=== PATIENT | female | born 1970 ===

== ENCOUNTER 2017-10-19 16:45 | Emergency (ER) | payer MEDICAID, OTHER ==
[2017-10-19 16:57] VITALS: TEMP 98.2
[2017-10-19 18:04] LABS: BASO # 0.1 K/uL (0.0-0.2); BASO % 0.7 % (0.0-2.0); EOS # 0.6 K/uL (0.0-0.7); EOS % 8.9 % (0.0-4.0); HEMOGLOBIN 11.9 g/dL (11.0-16.0); LYMPH # 2.5 K/uL (1.0-4.3); LYMPH % 34.5 % (20.0-40.0); MEAN CELL VOLUME 87.3 fL (81.0-99.0); MEAN CORPUSCULAR HEMOGLOBIN 29.7 pg (27.0-31.0); MEAN PLATELET VOLUME 9.1 fL (7.2-11.7); MONO # 0.5 K/uL (0.0-0.8); MONO % 7.1 % (0.0-10.0); NEUT # 3.5 K/uL (1.8-7.0); NEUT % 48.8 % (50.0-75.0); NRBC % 0.1 % (0.0-2.0); RBC 4.01 Mil/uL (3.80-5.20); RED CELL DISTRIBUTION WIDTH 13.1 % (11.5-14.5); WHITE BLOOD COUNT 7.2 K/uL (4.8-10.8)
[2017-10-19 18:07] LABS: HCG,QUALITATIVE URINE NEGATIVE (NEGATIVE)
[2017-10-19 18:08] LABS: SQUAMOUS EPITHIAL < 1 /hpf (0-5); URINE BILIRUBIN NEGATIVE (NEGATIVE); URINE BLOOD NEGATIVE (NEGATIVE); URINE CLARITY Clear (Clear); URINE COLOR Colorless (YELLOW); URINE GLUCOSE (UA) NORMAL (Normal); URINE LEUKOCYTE ESTERASE NEG Leu/uL (Negative); URINE NITRATE NEGATIVE (NEGATIVE); URINE PROTEIN NEGATIVE (NEGATIVE); URINE UROBILINOGEN NORMAL mg/dL (0.2-1.0)
[2017-10-19 18:16] LABS: ALB/GLOB RATIO 1.1 (1.0-2.1); ALBUMIN 4.4 g/dL (3.5-5.0); ALT/SGPT 70 U/L (9-52); AST/SGOT 64 U/L (14-36); BLOOD UREA NITROGEN 14 mg/dL (7-17); CALCIUM 9.4 mg/dl (8.6-10.4); GFR AFRICAN-AMERICAN > 60; GFR NON-AFRICAN AMERICAN 53
--- NOTE | 2017-10-19 19:14 | C.PDOC ---
Time Seen by Provider: 10/19/17 17:06 Chief Complaint (Nursing): Abdominal Pain History Per: Patient Onset/Duration Of Symptoms: Mins (30) Current Symptoms Are (Timing): Gone Severity: Moderate Location Of Pain/Discomfort: Epigastric Quality Of Discomfort: "Pain" Exacerbating Factors: None Alleviating Factors: None Additional History Per: Prior Records Past Medical History Reviewed: Historical Data, Nursing Documentation, Vital Signs Vital Signs: Last Vital Signs Temp 98.2 F 10/19/17 16:54 Pulse 53 L 10/19/17 16:54 Resp 19 10/19/17 16:54 BP 123/67 10/19/17 16:54 Pulse Ox 98 10/19/17 16:54 - Medical History Other PMH: Lupus Surgical History: No Surg Hx Family History: States: Unknown Family Hx - Social History Hx Alcohol Use: No Hx Substance Use: No - Immunization History Hx Tetanus Toxoid Vaccination: No Hx Influenza Vaccination: No Hx Pneumococcal Vaccination: No Review Of Systems Except As Marked, All Systems Reviewed And Found Negative. Constitutional: Negative for: Fever, Weakness Cardiovascular: Negative for: Chest Pain Respiratory: Negative for: Shortness of Breath Gastrointestinal: Positive for: Abdominal Pain. Negative for: Nausea, Vomiting , Diarrhea, Constipation, Melena, Hematochezia, Hematemesis Genitourinary: Negative for: Dysuria Musculoskeletal: Negative for: Neck Pain, Back Pain Skin: Negative for: Rash Neurological: Negative for: Weakness, Numbness Physical Exam - Physical Exam Appears: Non-toxic, No Acute Distress Skin: Normal Color, Warm, Dry, No Rash Head: Atraumatic, Normacephalic Eye(s): bilateral: Normal Inspection, PERRL, EOMI Neck: Normal ROM, Supple Cardiovascular: Rhythm Regular Respiratory: Normal Breath Sounds, No Accessory Muscle Use Gastrointestinal/Abdominal: Soft, No Tenderness, No Distention Back: No CVA Tenderness Extremity: Normal ROM Neurological/Psych: Oriented x3, Normal Motor, Normal Sensation ED Course And Treatment - Laboratory Results Result Diagrams: 10/19/17 18:01 10/19/17 18:01 Urine POC: Negative O2 Sat by Pulse Oximetry: 98 Pulse Ox Interpretation: Normal Progress Note: Pt is now asymptomatic. Tolerating PO in the ED. Reassessment Condition: Improved Disposition Counseled Patient/Family Regarding: Studies Performed, Diagnosis, Need For Followup, Rx Given - Disposition Referrals: Hannah Garcia MD [Staff Provider] - Disposition: HOME/ ROUTINE Disposition Time: 19:14 Condition: IMPROVED Additional Instructions: Follow up with your doctor. Return to the ER if you develop fever, vomiting, worsening of symptoms or if you have any other concerns. Prescriptions: Famotidine [Pepcid] 20 mg PO BID #30 tab Instructions: Gastritis Forms: [facility] ([place]), Gen Discharge Inst [place] - Clinical Impression Clinical Impression: Resolved abdominal pain
[2017-10-19 19:30] VITALS: BP 92/59; PULSE 56; RESP 18; O2SAT 99
== END 2017-10-19 19:30 | disposition home or self-care (01) ==
LOC: C.ER 16:45
DX: R10.9 Unspecified abdominal pain (principal); M32.9 Systemic lupus erythematosus, unspecified

== ENCOUNTER 2018-02-02 06:29 | Inpatient (IN) | payer MEDICAID ==
[2018-02-02 07:37] LABS: HCG,QUALITATIVE URINE NEGATIVE (NEGATIVE)
[2018-02-02 07:41] LABS: SQUAMOUS EPITHIAL 14 /hpf (0-5); URINE BACTERIA RARE (<OCC); URINE BILIRUBIN NEGATIVE (NEGATIVE); URINE BLOOD 1+ (NEGATIVE); URINE CLARITY Hazy (Clear); URINE COLOR Amber (YELLOW); URINE GLUCOSE (UA) NORMAL (Normal); URINE LEUKOCYTE ESTERASE TRACE Leu/uL (Negative); URINE PROTEIN NEGATIVE (NEGATIVE)
--- NOTE | 2018-02-02 07:54 | C.PDOC ---
History Of Present Illness 47 years old female presents to ED for complaints of epigastric abdominal pain associated with nausea and vomiting that began yesterday. Patient reports experiencing similar symptoms 2 months ago. Patient states symptoms currently are more intense and prolonged than usual. Patient also reports pain is localized and waxing and waning. Denies fever, or past surgical history. Patient also states she has not taken any medications for relief. RECUR EPIG PAIN SINCE YEST. SIM SX 2 MO AGO, CURRENT EPISODE MORE INTENSE AND PROLONGED THAN USUAL. LOCALIZED [place] +[place] NO FEVER. PSH NEG. NO MEDS TRIED. EXAM MILD DIST NONTOXIC HEENT ANICTERIC MMM ABD +EPIG/RUQ TEND SOFT NO R/G REMAINDER NEG Time Seen by Provider: 02/02/18 07:27 Chief Complaint (Nursing): Abdominal Pain History Per: Patient History/Exam Limitations: no limitations Onset/Duration Of Symptoms: Days (1), Waxing/Waning Current Symptoms Are (Timing): Still Present Location Of Pain/Discomfort: Epigastric Radiation Of Pain To:: None Quality Of Discomfort: "Pain" Associated Symptoms: Nausea, Vomiting. denies: Fever, Chills, Diarrhea, Urinary Symptoms Exacerbating Factors: None Alleviating Factors: None Last Bowel Movement: Today Recent travel outside of the [place]: No Abnormal Vaginal Bleeding: No Past Medical History Reviewed: Historical Data, Nursing Documentation, Vital Signs Vital Signs: Last Vital Signs Temp 98.1 F 02/02/18 06:33 Pulse 60 02/02/18 08:19 Resp 18 02/02/18 08:19 BP 105/67 02/02/18 08:19 Pulse Ox 100 02/02/18 12:22 - Medical History PMH: HTN Family History: States: Unknown Family Hx - Social History Hx Alcohol Use: No Hx Substance Use: No - Immunization History Hx Tetanus Toxoid Vaccination: No Hx Influenza Vaccination: No Hx Pneumococcal Vaccination: No Review Of Systems Constitutional: Negative for: Fever, Chills Gastrointestinal: Positive for: Nausea, Vomiting, Abdominal Pain (Epigastric). Negative for: Diarrhea Skin: Negative for: Rash Neurological: Negative for: Weakness, Numbness Physical Exam - Physical Exam Appears: Non-toxic, In Acute Distress (Mild) Skin: Warm, Dry, No Rash Head: Atraumatic, Normacephalic Eye(s): bilateral: Normal Inspection, PERRL, EOMI, Other (ANICTERIC) Ear(s): Bilateral: Normal Nose: Normal, No Discharge Oral Mucosa: Moist Throat: Normal, No Erythema, No Exudate Neck: Supple Chest: Symmetrical, No Tenderness Cardiovascular: Rhythm Regular, No Murmur Respiratory: Normal Breath Sounds, No Decreased Breath Sounds, No Rales, No Rhonchi, No Wheezing Gastrointestinal/Abdominal: Soft, Tenderness (Epigastric and RUQ), No Guarding, No Rebound Extremity: Normal ROM Extremity: Bilateral: Atraumatic, Normal Color And Temperature, Normal ROM Pulses: Left Radial: Normal, Right Radial: Normal Neurological/Psych: Oriented x3 (Awake and Alery), Normal Speech, Other (No focal deficits) Gait: Steady ED Course And Treatment - Laboratory Results Result Diagrams: 02/02/18 08:09 02/02/18 08:09 ECG: Interpreted By Me ECG Rhythm: Sinus Bradycardia ECG Interpretation: No Changes From Prior Interpretation Of ECG: TWI V5-6 Rate From EC O2 Sat by Pulse Oximetry: 100 (RA) Pulse Ox Interpretation: Normal - Other Rad CXR X-Ray: Viewed By Me, Read By Radiologist Interpretation: HISTORY: . Abdominal pain. COMPARISON: No prior. TECHNIQUE: Chest PA and lateral. FINDINGS: LUNGS: Minor bibasilar atelectasis. PLEURA : No significant pleural effusion identified. No pneumothorax apparent. CARDIOVASCULAR: Heart is enlarged. OSSEOUS STRUCTURES: Mild diffuse demineralization. Apparent minor chronic anterior stature loss of at least to the upper thoracic segments. VISUALIZED UPPER ABDOMEN: Normal. OTHER FINDINGS : None. IMPRESSION: Minor bibasilar atelectasis - CT Scan/US Abdomen US Other Rad Studies (CT/US): Read By Radiologist, Radiology Report Reviewed CT/US Interpretation: HISTORY: abd pain. COMPARISON: None. TECHNIQUE: Sonographic evaluation of the right upper quadrant of the abdomen. FINDINGS: LIVER: Enlarged, measured 22.0 cm in length. Normal echogenicity of the liver parenchyma. No mass. No intrahepatic bile duct dilatation. GALLBLADDER: Cholelithiasis and sludge without gallbladder wall thickening/edema or pericholecystic fluid. Sonographic Piña's sign was not elicited. COMMON BILE DUCT: Measures 5 mm. No stones. No dilatation. PANCREAS: Unremarkable as visualized. No mass. No ductal dilatation. RIGHT KIDNEY: Measures 11.2 x 4.9 x 6.1 cm in length. Normal echogenicity. No calculus, mass, or hydronephrosis. AORTA: No aneurysmal dilatation. IVC: Unremarkable. OTHER FINDINGS: None . IMPRESSION: Hepatomegaly. Cholelithiasis without sonographic evidence of acute cholecystitis. Abdomen/Pelvis CT Other Rad Studies (CT/US): Read By Radiologist, Radiology Report Reviewed CT/US Interpretation: PROCEDURE: CT Abdomen and Pelvis with contrast. HISTORY : abd pain abn lft. COMPARISON: None. TECHNIQUE: Contrast dose: 100 mL Visipaque 320. Radiation dose: Total exam DLP = 1168.4 mGy-cm. This CT exam was performed using one or more of the following dose reduction techniques: Automated exposure control, adjustment of the mA and/or kV according to patient size, and/or use of iterative reconstruction technique. FINDINGS: LOWER THORAX : Bibasilar atelectasis. No focal consolidation or pleural effusion. Cardiomegaly. LIVER: Mild hepatic steatosis. No gross lesion or ductal dilatation. GALLBLADDER AND BILE DUCTS: Cholelithiasis. No gallbladder wall thickening/edema or pericholecystic fluid. PANCREAS: Unremarkable. No gross lesion or ductal dilatation. SPLEEN: Unremarkable. ADRENALS: Unremarkable. No mass. KIDNEYS AND URETERS: Unremarkable. No hydronephrosis. No solid mass. VASCULATURE: Unremarkable. No aortic aneurysm. BOWEL: Unremarkable. No obstruction. No gross mural thickening. APPENDIX: Normal appendix. PERITONEUM : Unremarkable. No free fluid. No free air. LYMPH NODES: Unremarkable. No enlarged lymph nodes. BLADDER: Unremarkable. REPRODUCTIVE: Unremarkable. BONES: No acute fracture. OTHER FINDINGS: None. IMPRESSION: Mild hepatic steatosis. Cholelithiasis without sonographic evidence of acute cholecystitis. Progress - Re-Evaluation Re-evaluation Note: 02/02/18 12:[address] REPORT REVIEWED D/W DR KINSEY: AWARE OF ER FINDINGS, STATES UNABLE TO ADMIT PT DUE TO BEING OUT OF TOWN. REQUESTS ADMISSION TO [facility]. 02/02/18 12:37 D/W DR MILLER [facility] AWARE OF ER FINDINGS WILL ADMIT - Data Reviewed Data Reviewed: Lab, Diagnostic imaging, EKG, Old records Medical Decision Making Medical Decision Making: Administered Protonix, Morphine, Compazine, and IV fluids. Ordered EKG, blood work, CXR, urinalysis and Abdomen US. Disposition Counseled Patient/Family Regarding: Studies Performed, Diagnosis - Disposition Disposition: HOSPITALIZED Disposition Time: 12:21 Condition: STABLE Forms: [facility] ([place]) - Clinical Impression Clinical Impression: Biliary colic, Abnormal LFTs - Scribe Statement The provider has reviewed the documentation as recorded by the Evin Menendez All medical record entries made by the Scribe were at my direction and personally dictated by me. I have reviewed the chart and agree that the record accurately reflects my personal performance of the history, physical exam, medical decision making, and the department course for this patient. I have also personally directed, reviewed, and agree with the discharge instructions and disposition. Decision To Admit - Pt Status Changed To: Hospital Disposition Of: Inpatient - Admit Certification Admit to Inpatient:: After my assessment, the patient will require hospitalization for at least two midnights. This is because of the severity of symptoms shown, intensity of services needed, and/or the medical risk in this patient being treated as an outpatient. - InPatient: Physician Admission Certification:: SEE NOTE - . Bed Request Type: Regular Admitting Physician: Patel Miller Patient Diagnosis: Biliary colic, Abnormal LFTs
[2018-02-02] MEDS ORDERED: Sodium Chloride 0.9% 1,000 ML IV ONE (07:55)
[2018-02-02] MEDS ORDERED: Sodium Chloride 0.9% 1,000 ML ONE (08:11)
[2018-02-02 08:21] LABS: BASO % 0.4 % (0.0-2.0); EOS # 0.2 K/uL (0.0-0.7); EOS % 2.1 % (0.0-4.0); LYMPH # 1.8 K/uL (1.0-4.3); MEAN CELL VOLUME 86.9 fL (81.0-99.0); MEAN CORPUSCULAR HEMOGLOBIN 29.2 pg (27.0-31.0); MEAN CORPUSCULAR HGB CONC 33.6 g/dL (33.0-37.0); MEAN PLATELET VOLUME 9.1 fL (7.2-11.7); MONO # 0.6 K/uL (0.0-0.8); NEUT # 4.8 K/uL (1.8-7.0); NEUT % 65.5 % (50.0-75.0); NRBC % 0.1 % (0.0-2.0); RBC 4.12 Mil/uL (3.80-5.20); RED CELL DISTRIBUTION WIDTH 13.5 % (11.5-14.5); WHITE BLOOD COUNT 7.4 K/uL (4.8-10.8)
[2018-02-02 08:36] LABS: ALB/GLOB RATIO 1.3 (1.0-2.1); ALBUMIN 4.6 g/dL (3.5-5.0); ALT/SGPT 367 U/L (9-52); AST/SGOT 497 U/L (14-36); BLOOD UREA NITROGEN 12 mg/dL (7-17); CALCIUM 9.4 mg/dl (8.6-10.4); GFR AFRICAN-AMERICAN > 60; GFR NON-AFRICAN AMERICAN > 60; LIPASE 139 U/L (23-300)
--- NOTE | 2018-02-02 09:47 | US ---
HISTORY: abd pain COMPARISON: None. TECHNIQUE: Sonographic evaluation of the right upper quadrant of the abdomen. FINDINGS: LIVER: Enlarged, measured 22.0 cm in length. Normal echogenicity of the liver parenchyma. No mass. No intrahepatic bile duct dilatation. GALLBLADDER: Cholelithiasis and sludge without gallbladder wall thickening/edema or pericholecystic fluid. Sonographic Piña's sign was not elicited COMMON BILE DUCT: Measures 5 mm. No stones. No dilatation. PANCREAS: Unremarkable as visualized. No mass. No ductal dilatation. RIGHT KIDNEY: Measures 11.2 x 4.9 x 6.1 cm in length. Normal echogenicity. No calculus, mass, or hydronephrosis. AORTA: No aneurysmal dilatation. IVC: Unremarkable. OTHER FINDINGS: None . IMPRESSION: Hepatomegaly. Cholelithiasis without sonographic evidence of acute cholecystitis.
[2018-02-02] MEDS ORDERED: Iodixanol 320 MG/ML 100 ML BOTTLE IV ONE ×2 (11:22→11:29)
--- NOTE | 2018-02-02 12:01 | RAD ---
HISTORY: . Abdominal pain COMPARISON: No prior. TECHNIQUE: Chest PA and lateral FINDINGS: LUNGS: Minor bibasilar atelectasis. PLEURA: No significant pleural effusion identified. No pneumothorax apparent. CARDIOVASCULAR: Heart is enlarged. OSSEOUS STRUCTURES: Mild diffuse demineralization. Apparent minor chronic anterior stature loss of at least to the upper thoracic segments VISUALIZED UPPER ABDOMEN: Normal. OTHER FINDINGS: None. IMPRESSION: Minor bibasilar atelectasis
--- NOTE | 2018-02-02 12:02 | CT ---
PROCEDURE: CT Abdomen and Pelvis with contrast HISTORY: abd pain abn lft COMPARISON: None. TECHNIQUE: Contrast dose: 100 mL Visipaque 320 Radiation dose: Total exam DLP = 1168.4 mGy-cm. This CT exam was performed using one or more of the following dose reduction techniques: Automated exposure control, adjustment of the mA and/or kV according to patient size, and/or use of iterative reconstruction technique. FINDINGS: LOWER THORAX: Bibasilar atelectasis. No focal consolidation or pleural effusion. Cardiomegaly. LIVER: Mild hepatic steatosis. No gross lesion or ductal dilatation. GALLBLADDER AND BILE DUCTS: Cholelithiasis. No gallbladder wall thickening/edema or pericholecystic fluid. PANCREAS: Unremarkable. No gross lesion or ductal dilatation. SPLEEN: Unremarkable. ADRENALS: Unremarkable. No mass. KIDNEYS AND URETERS: Unremarkable. No hydronephrosis. No solid mass. VASCULATURE: Unremarkable. No aortic aneurysm. BOWEL: Unremarkable. No obstruction. No gross mural thickening. APPENDIX: Normal appendix. PERITONEUM: Unremarkable. No free fluid. No free air. LYMPH NODES: Unremarkable. No enlarged lymph nodes. BLADDER: Unremarkable. REPRODUCTIVE: Unremarkable. BONES: No acute fracture. OTHER FINDINGS: None. IMPRESSION: Mild hepatic steatosis. Cholelithiasis without sonographic evidence of acute cholecystitis.
--- NOTE | 2018-02-02 13:18 | CARD ---
APPROVED REPORT EKG Measurement Heart [id number] <Conclusion> Sinus bradycardia Low voltage QRS Nonspecific T wave abnormality Abnormal ECG
--- NOTE | 2018-02-02 13:30 | CP.PCM.HP ---
<Cristian Aguirre - Last Filed: 02/02/18 14:02> History of Present Illness - History of Present Illness History of Present Illness: H&P for hospitalist service Pt is 47 year old female with hx of SLE and hypertension. She is presenting today with 1 day hx of upper abdominal pain. She states that she has experienced this pain in the past and it has subsided on its own historically. Her most recent bout of pain started yesterday and has been waxing and waning since onset. She denies vomiting, fever, chest pain, shortness of breath, diarrhea, constipation, irregular bowel/bladded habits, hematochezia, dysuria. She is unable to make any distinct association between food and the abdominal pain, as it occurs both on an empty stomach as well as after meals. Her pain has subsided since she first arrived and states that she is okay right now. During examination the patient appears comfortable and is laying in bed. PMD: Dr. Garcia PMHx: SLE, HTN PSHx: denied Meds: Coreg 25mg PO BID Lasix 40mg PO Daily Lisinopril 10mg PO daily Hydroxychloroquin 200mg PO BID Spironolactone 25mg PO daily Allergies: NKDA Family Hx: Father with HTN Social Hx: Non-smoker, occasional ETOh, No illicit drugs Present on Admission - Present on Admission Any Indicators Present on Admission: No Review of Systems - Constitutional Constitutional: absent: Anorexia, Chills, Fatigue, Fever, Headache, Lethargy - EENT Eyes: absent: Blurred Vision, Change in Vision Nose/Mouth/Throat: absent: Sore Throat, Neck Pain - Cardiovascular Cardiovascular: absent: Chest Pain, Chest Pain at Rest, Diaphoresis, Dyspnea, Syncope - Respiratory Respiratory: absent: Dyspnea - Gastrointestinal Gastrointestinal: Abdominal Pain. absent: Constipation, Diarrhea, Hematemesis, Melena, Nausea, Vomiting - Genitourinary Genitourinary: absent: Dysuria, Flank Pain, Hematuria - Musculoskeletal Musculoskeletal: absent: Arthralgias, Back Pain - Neurological Neurological: absent: Abnormal Gait, Syncope, Tingling, Weakness Past Patient History - Infectious Disease Hx of Infectious Diseases: None - Past Social History Smoking Status: Never Smoked - CARDIAC Hx Hypertension: Yes - ENDOCRINE/METABOLIC Hx Systemic Lupus Erythematosus: Yes - PSYCHIATRIC Hx Substance Use: No - SURGICAL HISTORY Hx Surgeries: No - ANESTHESIA Hx Anesthesia: No Meds Allergies/Adverse Reactions: Allergies Allergy/AdvReac Type Severity Reaction Status Date / Time No Known Allergies Allergy Verified 02/02/18 06:38 Physical Exam - Constitutional Appears: No Acute Distress - Head Exam Head Exam: ATRAUMATIC, NORMOCEPHALIC - Eye Exam Eye Exam: EOMI, Normal appearance - ENT Exam ENT Exam: Mucous Membranes Moist - Respiratory Exam Respiratory Exam: Clear to Auscultation Bilateral, NORMAL BREATHING PATTERN - Cardiovascular Exam Cardiovascular Exam: REGULAR RHYTHM, +S1, +S2 - GI/Abdominal Exam GI & Abdominal Exam: Normal Bowel Sounds, Soft. absent: Distended, Guarding, Mass, Tenderness Additional comments: negative Piña - Rectal Exam Rectal Exam: absent: Black Stool, Bloody Stool - Neurological Exam Neurological exam: Alert, Oriented x3 - Psychiatric Exam Psychiatric exam: Normal Affect, Normal Mood - Skin Skin Exam: Dry, Warm Results - Vital Signs Recent Vital Signs: Last Vital Signs Temp 98.2 F 02/02/18 12:55 Pulse 57 L 02/02/18 12:55 Resp 16 02/02/18 12:55 BP 110/74 02/02/18 12:55 Pulse Ox 100 02/02/18 12:55 - Labs Result Diagrams: 02/02/18 08:09 02/02/18 08:09 Labs: Laboratory Results - last 24 hr 02/02/18 02/02/18 02/02/18 07:28 08:09 08:09 WBC 7.4 RBC 4.12 Hgb 12.0 Hct 35.8 MCV 86.9 MCH 29.2 MCHC 33.6 RDW 13.5 Plt Count 205 MPV 9.1 Neut % (Auto) 65.5 Lymph % (Auto) 24.0 [place] % (Auto) 8.0 Eos % (Auto) 2.1 Baso % (Auto) 0.4 Neut # (Auto) 4.8 Lymph # (Auto) 1.8 [place] # (Auto) 0.6 Eos # (Auto) 0.2 Baso # (Auto) 0.0 Sodium 141 Potassium 4.0 Chloride 102 Carbon Dioxide 27 Anion Gap 15 BUN 12 Creatinine 0.7 Est GFR ( Amer) > 60 Est GFR (Non-Af Amer) > 60 Random Glucose 112 H Calcium 9.4 Total Bilirubin 1.6 H AST 497 H D ALT 367 H D Alkaline Phosphatase 147 H D Troponin I < 0.0120 Total Protein 8.1 Albumin 4.6 Globulin 3.5 Albumin/Globulin Ratio 1.3 Lipase 139 Urine Color [place] Urine Clarity Hazy Urine pH 7.0 Ur Specific [place] 1.018 Urine Protein Negative Urine Glucose (UA) Normal Urine Ketones Negative Urine Blood 1+ H Urine Nitrate Negative Urine Bilirubin Negative Urine Urobilinogen 2.0 H Ur Leukocyte Esterase Trace H Urine WBC (Auto) 5 Urine RBC (Auto) 4 H Ur Squamous Epith Cells 14 H Ur Transition Epith Cell 1 Urine Bacteria Rare Urine HCG, Qual Negative Assessment & Plan - Assessment and Plan (Free Text) Assessment: 47 year old female with hx of HTN and SLE presenting for 1 day hx of upper abdominal pain Plan: 1. Abdominal pain Abdominal Ultrasound done in ED shows cholelithiasis w/o evidence for cholecystitis CT abdomen/pelvis done in ED shows cholelithiasis w/o evidence for cholecystitis GI consult placed to Dr. Deon Ahmadi appreciated Protonix 40mg IV BID NPO except meds F/U MRCP- ordered 02/02/18 Labs: AST: 497 ALT: 367 Alk Phos: 147 T Bili: 1.6 Lipase: 139 WBC: 7.4 Afebrile Toradol 30mg IV q6hrs prn mod pain Dilaudid 0.5 mg q7hrs prn severe pain zofran 4mg iv q4hrs prn nausea 2. Hypertension Currently normotensive Continue home meds: Coreg 25mg PO BID Lasix 40mg PO Daily Lisinopril 10mg PO daily Spironolactone 25mg PO daily 3. SLE Continue home meds: Hydroxychloroquin 200mg PO BID 4. Prophylaxis Protonix 40mg IV BID SCD Case discussed with Dr. Painter <Patel Painter H - Last Filed: 02/02/18 16:37> Results - Vital Signs Recent Vital Signs: Last Vital Signs Temp 98.1 F 02/02/18 16:21 Pulse 55 L 02/02/18 16:21 Resp 20 02/02/18 16:21 BP 112/71 02/02/18 16:21 Pulse Ox 97 02/02/18 16:21 - Labs Result Diagrams: 02/02/18 08:09 02/02/18 08:09 Labs: Laboratory Results - last 24 hr 0602/02/18 02/02/18 07:28 08:09 08:09 WBC 7.4 RBC 4.12 Hgb 12.0 Hct 35.8 MCV 86.9 MCH 29.2 MCHC 33.6 RDW 13.5 Plt Count 205 MPV 9.1 Neut % (Auto) 65.5 Lymph % (Auto) 24.0 [place] % (Auto) 8.0 Eos % (Auto) 2.1 Baso % (Auto) 0.4 Neut # (Auto) 4.8 Lymph # (Auto) 1.8 [place] # (Auto) 0.6 Eos # (Auto) 0.2 Baso # (Auto) 0.0 Sodium 141 Potassium 4.0 Chloride 102 Carbon Dioxide 27 Anion Gap 15 BUN 12 Creatinine 0.7 Est GFR ( Amer) > 60 Est GFR (Non-Af Amer) > 60 Random Glucose 112 H Calcium 9.4 Total Bilirubin 1.6 H AST 497 H D ALT 367 H D Alkaline Phosphatase 147 H D Troponin I < 0.0120 Total Protein 8.1 Albumin 4.6 Globulin 3.5 Albumin/Globulin Ratio 1.3 Lipase 139 Urine Color [place] Urine Clarity Hazy Urine pH 7.0 Ur Specific [place] 1.018 Urine Protein Negative Urine Glucose (UA) Normal Urine Ketones Negative Urine Blood 1+ H Urine Nitrate Negative Urine Bilirubin Negative Urine Urobilinogen 2.0 H Ur Leukocyte Esterase Trace H Urine WBC (Auto) 5 Urine RBC (Auto) 4 H Ur Squamous Epith Cells 14 H Ur Transition Epith Cell 1 Urine Bacteria Rare Urine HCG, Qual Negative Attending/Attestation - Attestation I have personally seen and examined this patient.: Yes I have fully participated in the care of the patient.: Yes I have reviewed all pertinent clinical information: Yes Notes (Text): 02/02/18 16:34 Medical attending: Patient was not in any acute distress when I saw her. She reported that most of the pain had already subsided. She already had U/S as well as CT scan of the abdomen and pelvis which revealed she does have gallstones but that no stones were immediately visualized. There was no sonographic piña sign and she did not report fever. The WBC was also stable as well. Will get MRCP for the time being. NPO except medications, IVF and also will get GI evaluation Patel Painter
[2018-02-02] MEDS ORDERED: HYDROmorphone 0.5 mg/0.5 ml ISec IVP PRN (13:54)
[2018-02-02] MEDS: Sodium Chloride 0.9% 1,000 ML IV SCH (14:52)
--- NOTE | 2018-02-02 15:53 | CP.PCM.CON ---
<Alison Guaman - Last Filed: 02/02/18 16:36> History of Present Illness - History of Present Illness History of Present Illness: GI Fellow PGY4 Consult Note This is 47 year old female with hx of SLE on hydroxychloroquine and hypertension presenting to ER with 2 day hx of abdominal pain. She states that she had a similar pain 3months ago but it resolved on its own. This pain started two nights ago, located epigastric area and radiating across upper abdomen. Pt denies associated fevers, chills, nausea or vomiting, pain is waxing and waning since onset. She is unable to make association between food and the abdominal pain. At the time of evaluation her pain has subsided since she first arrived. GI was consulted for elevated LFTs and cholelithiasis on imaging. No prior EGD/Colonoscopy. ROS: A 12pt ROS was negative except as above PMHx: As stated in HPI PSHx: None FHx: Neg for colon cancer or gallstones SHx: Non-smoker, occasional ETOh, No illicit drugs Past Patient History - Infectious Disease Hx of Infectious Diseases: None - Past Social History Smoking Status: Never Smoked - CARDIAC Hx Hypertension: Yes - ENDOCRINE/METABOLIC Hx Systemic Lupus Erythematosus: Yes - PSYCHIATRIC Hx Substance Use: No - SURGICAL HISTORY Hx Surgeries: No - ANESTHESIA Hx Anesthesia: No Meds Allergies/Adverse Reactions: Allergies Allergy/AdvReac Type Severity Reaction Status Date / Time No Known Allergies Allergy Verified 02/02/18 06:38 - Medications Medications: Current Medications Acetaminophen (Tylenol 325mg Tab) 650 mg PO Q6 PRN PRN Reason: Fever >100.4 F Carvedilol (Coreg) 25 mg PO BID [facility] Furosemide (Lasix) 40 mg PO DAILY [facility] Hydromorphone HCl (Dilaudid) 0.5 mg IVP Q6H PRN PRN Reason: Pain, severe (8-10) Hydroxychloroquine Sulfate (Plaquenil) 200 mg PO BID [facility] PRN Reason: Protocol Sodium Chloride (Sodium Chloride 0.9%) 1,000 mls @ 100 mls/hr IV .Q10H [facility] Last Admin: 02/02/18 14:52 Dose: 100 mls/hr Ketorolac Tromethamine (Toradol) 30 mg IV Q6 PRN PRN Reason: Pain, moderate (4-7) Lisinopril (Zestril) 10 mg PO DAILY [facility] Ondansetron HCl (Zofran Inj) 4 mg IVP Q6 PRN PRN Reason: Nausea/Vomiting Spironolactone (Aldactone) 25 mg PO DAILY [facility] Physical Exam - Constitutional Appears: Non-toxic, No Acute Distress - Head Exam Head Exam: ATRAUMATIC, NORMAL INSPECTION, NORMOCEPHALIC - Eye Exam Eye Exam: EOMI, Normal appearance, PERRL Pupil Exam: PERRL - ENT Exam ENT Exam: Mucous Membranes Moist, Normal Exam - Neck Exam Neck exam: Positive for: Full Rom, Normal Inspection - Respiratory Exam Respiratory Exam: Clear to Auscultation Bilateral, NORMAL BREATHING PATTERN - Cardiovascular Exam Cardiovascular Exam: REGULAR RHYTHM, RRR, +S1, +S2 - GI/Abdominal Exam GI & Abdominal Exam: Normal Bowel Sounds, Soft. absent: Distended, Organomegaly , Tenderness - Rectal Exam Rectal Exam: Deferred - Extremities Exam Extremities exam: Positive for: full ROM, normal inspection - Back Exam Back exam: NORMAL INSPECTION - Neurological Exam Neurological exam: Alert, Oriented x3 - Psychiatric Exam Psychiatric exam: Normal Affect, Normal Mood - Skin Skin Exam: Dry, Intact, Normal Color, Warm Results - Vital Signs Recent Vital Signs: Last Vital Signs Temp 98.2 F 02/02/18 12:55 Pulse 61 02/02/18 14:51 Resp 18 02/02/18 14:51 BP 131/77 02/02/18 14:51 Pulse Ox 97 02/02/18 14:51 - Labs Result Diagrams: 02/02/18 08:09 02/02/18 08:09 Labs: Laboratory Results - last 24 hr 02/02/18 02/02/18 02/02/18 07:28 08:09 08:09 WBC 7.4 RBC 4.12 Hgb 12.0 Hct 35.8 MCV 86.9 MCH 29.2 MCHC 33.6 RDW 13.5 Plt Count 205 MPV 9.1 Neut % (Auto) 65.5 Lymph % (Auto) 24.0 [place] % (Auto) 8.0 Eos % (Auto) 2.1 Baso % (Auto) 0.4 Neut # (Auto) 4.8 Lymph # (Auto) 1.8 [place] # (Auto) 0.6 Eos # (Auto) 0.2 Baso # (Auto) 0.0 Sodium 141 Potassium 4.0 Chloride 102 Carbon Dioxide 27 Anion Gap 15 BUN 12 Creatinine 0.7 Est GFR ( Amer) > 60 Est GFR (Non-Af Amer) > 60 Random Glucose 112 H Calcium 9.4 Total Bilirubin 1.6 H AST 497 H D ALT 367 H D Alkaline Phosphatase 147 H D Troponin I < 0.0120 Total Protein 8.1 Albumin 4.6 Globulin 3.5 Albumin/Globulin Ratio 1.3 Lipase 139 Urine Color [place] Urine Clarity Hazy Urine pH 7.0 Ur Specific [place] 1.018 Urine Protein Negative Urine Glucose (UA) Normal Urine Ketones Negative Urine Blood 1+ H Urine Nitrate Negative Urine Bilirubin Negative Urine Urobilinogen 2.0 H Ur Leukocyte Esterase Trace H Urine WBC (Auto) 5 Urine RBC (Auto) 4 H Ur Squamous Epith Cells 14 H Ur Transition Epith Cell 1 Urine Bacteria Rare Urine HCG, Qual Negative Assessment & Plan - Assessment and Plan (Free Text) Assessment: This is a 47yF with pmhx of HTN, SLE presenting with complaints of two days of upper abdominal pain. 1. Cholelithiasis with sludge 2. Elevated LFTs Plan: -Continue supportive care pain control and antiemetics -IVF hydration -Clear liquid diet -NPO after midnight -Elevated LFTs from 09/2017, maybe from cholelithiasis and sludge as seen on imaging -Will order hepatitis panel, autoimmune serologies for completion -Primary team ordered MRCP, Abd US with no CBD dilation or stone, no signs of cholangitis -Recommend Surgical consult -No indication for abx at this time -Will make further recommendations after MRCP results <Kishan Ellis Y - Last Filed: 02/02/18 17:59> Meds - Medications Medications: Current Medications Acetaminophen (Tylenol 325mg Tab) 650 mg PO Q6 PRN PRN Reason: Fever >100.4 F Carvedilol (Coreg) 25 mg PO BID [facility] Furosemide (Lasix) 40 mg PO DAILY [facility] Hydromorphone HCl (Dilaudid) 0.5 mg IVP Q6H PRN PRN Reason: Pain, severe (8-10) Hydroxychloroquine Sulfate (Plaquenil) 200 mg PO BID [facility] PRN Reason: Protocol Sodium Chloride (Sodium Chloride 0.9%) 1,000 mls @ 100 mls/hr IV .Q10H [facility] Last Admin: 02/02/18 14:52 Dose: 100 mls/hr Ketorolac Tromethamine (Toradol) 30 mg IV Q6 PRN PRN Reason: Pain, moderate (4-7) Lisinopril (Zestril) 10 mg PO DAILY [facility] Ondansetron HCl (Zofran Inj) 4 mg IVP Q6 PRN PRN Reason: Nausea/Vomiting Spironolactone (Aldactone) 25 mg PO DAILY [facility] Results - Vital Signs Recent Vital Signs: Last Vital Signs Temp 98.1 F 02/02/18 16:21 Pulse 55 L 02/02/18 16:21 Resp 20 02/02/18 16:21 BP 112/71 02/02/18 16:21 Pulse Ox 97 02/02/18 16:21 - Labs Result Diagrams: 02/02/18 08:09 02/02/18 08:09 Labs: Laboratory Results - last 24 hr 02/02/18 02/02/18 02/02/18 07:28 08:09 08:09 WBC 7.4 RBC 4.12 Hgb 12.0 Hct 35.8 MCV 86.9 MCH 29.2 MCHC 33.6 RDW 13.5 Plt Count 205 MPV 9.1 Neut % (Auto) 65.5 Lymph % (Auto) 24.0 [place] % (Auto) 8.0 Eos % (Auto) 2.1 Baso % (Auto) 0.4 Neut # (Auto) 4.8 Lymph # (Auto) 1.8 [place] # (Auto) 0.6 Eos # (Auto) 0.2 Baso # (Auto) 0.0 Sodium 141 Potassium 4.0 Chloride 102 Carbon Dioxide 27 Anion Gap 15 BUN 12 Creatinine 0.7 Est GFR ( Amer) > 60 Est GFR (Non-Af Amer) > 60 Random Glucose 112 H Calcium 9.4 Iron TIBC % Saturation Total Bilirubin 1.6 H AST 497 H D ALT 367 H D Alkaline Phosphatase 147 H D Troponin I < 0.0120 Total Protein 8.1 Albumin 4.6 Globulin 3.5 Albumin/Globulin Ratio 1.3 Lipase 139 Urine Color [place] Urine Clarity Hazy Urine pH 7.0 Ur Specific [place] 1.018 Urine Protein Negative Urine Glucose (UA) Normal Urine Ketones Negative Urine Blood 1+ H Urine Nitrate Negative Urine Bilirubin Negative Urine Urobilinogen 2.0 H Ur Leukocyte Esterase Trace H Urine WBC (Auto) 5 Urine RBC (Auto) 4 H Ur Squamous Epith Cells 14 H Ur Transition Epith Cell 1 Urine Bacteria Rare Urine HCG, Qual Negative IgG Hepatitis A IgM Ab Hep Bs Antigen Hep B Core IgM Ab 02/02/18 02/02/18 02/02/18 16:43 16:43 16:43 WBC RBC Hgb Hct MCV MCH MCHC RDW Plt Count MPV Neut % (Auto) Lymph % (Auto) [place] % (Auto) Eos % (Auto) Baso % (Auto) Neut # (Auto) Lymph # (Auto) [place] # (Auto) Eos # (Auto) Baso # (Auto) Sodium Potassium Chloride Carbon Dioxide Anion Gap BUN Creatinine Est GFR ( Amer) Est GFR (Non-Af Amer) Random Glucose Calcium Iron 85 TIBC 315 % Saturation 27 Total Bilirubin AST ALT Alkaline Phosphatase Troponin I Total Protein Albumin Globulin Albumin/Globulin Ratio Lipase Urine Color Urine Clarity Urine pH Ur Specific [place] Urine Protein Urine Glucose (UA) Urine Ketones Urine Blood Urine Nitrate Urine Bilirubin Urine Urobilinogen Ur Leukocyte Esterase Urine WBC (Auto) Urine RBC (Auto) Ur Squamous Epith Cells Ur Transition Epith Cell Urine Bacteria Urine HCG, Qual IgG 1539.1 Hepatitis A IgM Ab Negative Hep Bs Antigen Negative Hep B Core IgM Ab Negative Attending/Attestation - Attestation I have personally seen and examined this patient.: Yes I have fully participated in the care of the patient.: Yes I have reviewed all pertinent clinical information: Yes Notes (Text): 02/02/18 17:54 I have seen and examined patient with GI fellow. Agree with above documentation with the following additions. In brief, this is a 47 year old female with history of obesity (BMI 35), SLE, HTN who presents to hospital with complaint of abdominal pain for the past 2 days. She describes a sharp epigastric pain, 10/10 intensity which radiates to both R/L upper quadrants. There was no specific relation to food consumption and she denies nausea, vomiting, diarrhea, fever/chills, weight loss, or change in bowel habits. She does report a very similar episode 3 months ago which resolved on its own. No prior endoscopic evaluation. Review of vitals from today are normal. Obesity SLE HTN Abdominal pain Transaminitis US/CT imaging reviewed by me showing normal caliber CBD, +cholelithiasis - Clear liquid diet as tolerated - Continue to monitor LFTs, obtain viral hepatitis and autoimmune serologies - Clinical features suggestive of biliary colic, will obtain MRCP to exclude for choledocholithiasis - Patient would likely benefit from surgical consultation for cholecystectomy evaluation - Will continue to monitor patient clinical course
[2018-02-02 17:07] LABS: IRON 85 ug/dL (37-170)
[2018-02-02 17:19] LABS: % IRON SATURATION 27 (20-55); TOTAL IRON BINDING CAPACITY 315 ug/dL (250-450)
[2018-02-02 17:42] LABS: HEPATITIS B SURFACE AG Negative (NEGATIVE)
[2018-02-02 17:48] LABS: HEPATITIS A IGM NEGATIVE (NEGATIVE); HEPATITIS B CORE AB NEGATIVE (NEGATIVE)
[2018-02-02 18:00] LABS: HEPATITIS C ANTIBODY NEGATIVE (NEGATIVE)
[2018-02-03] MEDS: Sodium Chloride 0.9% 1,000 ML IV SCH ×2 (00:50→12:20)
--- NOTE | 2018-02-03 07:48 | CP.PCM.PN ---
Addendum entered and electronically signed by Sissy Sim 02/03/18 11:40 : Cholelithiasis - Images: * Abdominal Ultrasound done in ED shows cholelithiasis w/o evidence for cholecystitis * CT abdomen/pelvis done in ED shows cholelithiasis w/o evidence for cholecystitis - GI consult: Dr. Khan --> help appreciated - F/U MRCP- ordered 02/03/18 - General Consult: Dr. Cornel Mckenna --> help appreciated - EKG: bradycardia NSR - Chest xray: Mild bibasilar atelectasis - Detsky Score: 0 -> Class I 6% risk of complications - Patient is medically optimized - Possible Cholecystectomy 02/04/18 - Labs: AST: 497 --> 192 ALT: 367 --> 367 Alk Phos: 147 --> 142 T Bili: 1.6 --> 1.3 Lipase: 139 WBC: 7.4 --> 5.5 - Afebrile - Medications * Toradol 30mg IV q6hrs prn mod pain * zofran 4mg iv q4hrs prn nausea * Protonix 40mg IV BID History of Hypertension - Currently normotensive - Continue home meds: * Coreg 25mg PO BID * Lasix 40mg PO Daily * Lisinopril 10mg PO daily * Spironolactone 25mg PO daily History of SLE - Continue home meds: * Hydroxychloroquin 200mg PO BID Prophylaxis - Protonix 40mg IV BID - SCD Case discussed with Dr. Madina Sim PGY-1 Original Note: <Sissy Sim - Last Filed: 02/03/18 10:25> Subjective - Date & Time of Evaluation Date of Evaluation: 02/03/18 Time of Evaluation: 07:00 - Subjective Subjective: Medicine Progress Note: Patient was seen and examined at bedside in the AM. Patient states she is feeling much better. Patient denies abdominal pain, nausea, vomiting, fever, chills,diarrhea or constipation. Objective - Vital Signs/Intake and Output Vital Signs (last 24 hours): Temp Pulse Resp BP Pulse Ox 98.5 F 60 20 108/67 98 02/02/18 23:44 02/02/18 23:44 02/02/18 23:44 02/02/18 23:44 02/03/18 00:07 Intake and Output: 02/03/18 02/03/18 06:59 18:59 Intake Total 1850 Balance 1850 - Medications Medications: Current Medications Acetaminophen (Tylenol 325mg Tab) 650 mg PO Q6 PRN PRN Reason: Fever >100.4 F Carvedilol (Coreg) 25 mg PO BID [facility] Last Admin: 02/02/18 18:18 Dose: Not Given Furosemide (Lasix) 40 mg PO DAILY [facility] Hydromorphone HCl (Dilaudid) 0.5 mg IVP Q6H PRN PRN Reason: Pain, severe (8-10) Hydroxychloroquine Sulfate (Plaquenil) 200 mg PO BID [facility] PRN Reason: Protocol Last Admin: 02/02/18 21:20 Dose: 200 mg Sodium Chloride (Sodium Chloride 0.9%) 1,000 mls @ 100 mls/hr IV .Q10H [facility] Last Admin: 02/03/18 00:50 Dose: 100 mls/hr Ketorolac Tromethamine (Toradol) 30 mg IV Q6 PRN PRN Reason: Pain, moderate (4-7) Lisinopril (Zestril) 10 mg PO DAILY [facility] Ondansetron HCl (Zofran Inj) 4 mg IVP Q6 PRN PRN Reason: Nausea/Vomiting Pneumococcal Polyvalent Vaccine (Pneumovax 23 Vaccine) 0.5 ml IM .ONCE ONE Stop: 02/04/18 10:01 Spironolactone (Aldactone) 25 mg PO DAILY [facility] - Labs Labs: 02/02/18 08:09 02/02/18 08:09 - Constitutional Appears: No Acute Distress - Head Exam Head Exam: ATRAUMATIC, NORMAL INSPECTION - Eye Exam Eye Exam: EOMI, Normal appearance - ENT Exam ENT Exam: Mucous Membranes Moist - Respiratory Exam Respiratory Exam: Clear to Ausculation Bilateral, NORMAL BREATHING PATTERN - Cardiovascular Exam Cardiovascular Exam: REGULAR RHYTHM, +S1, +S2 - GI/Abdominal Exam GI & Abdominal Exam: Soft, Normal Bowel Sounds. absent: Tenderness - Extremities Exam Extremities Exam: Normal Inspection - Neurological Exam Neurological Exam: Alert, Awake, Oriented x3 - Psychiatric Exam Psychiatric exam: Normal Affect - Skin Skin Exam: Normal Color Assessment and Plan - Assessment and Plan (Free Text) Assessment: Cholelithiasis - Images: * Abdominal Ultrasound done in ED shows cholelithiasis w/o evidence for cholecystitis * CT abdomen/pelvis done in ED shows cholelithiasis w/o evidence for cholecystitis - GI consult: Dr. Khan --> help appreciated - General Consult: Dr. Cornel Mckenna --> help appreciated - F/U MRCP- ordered 02/03/18 - Labs: AST: 497 --> 192 ALT: 367 --> 367 Alk Phos: 147 --> 142 T Bili: 1.6 --> 1.3 Lipase: 139 WBC: 7.4 --> 5.5 - Afebrile - Medications * Toradol 30mg IV q6hrs prn mod pain * zofran 4mg iv q4hrs prn nausea * Protonix 40mg IV BID History of Hypertension - Currently normotensive - Continue home meds: * Coreg 25mg PO BID * Lasix 40mg PO Daily * Lisinopril 10mg PO daily * Spironolactone 25mg PO daily History of SLE - Continue home meds: * Hydroxychloroquin 200mg PO BID Prophylaxis - Protonix 40mg IV BID - SCD Case discussed with Dr. Madina Sim PGY-1 <Patel Painter - Last Filed: 02/03/18 15:20> Objective - Vital Signs/Intake and Output Vital Signs (last 24 hours): Temp Pulse Resp BP Pulse Ox 98.1 F 60 21 111/64 97 02/03/18 08:05 02/03/18 08:05 02/03/18 08:05 02/03/18 10:07 02/03/18 08:45 Intake and Output: 02/03/18 02/03/18 06:59 18:59 Intake Total 1850 Balance 1850 - Medications Medications: Current Medications Acetaminophen (Tylenol 325mg Tab) 650 mg PO Q6 PRN PRN Reason: Fever >100.4 F Acetaminophen (Tylenol 650 Mg Supp) 650 mg [place] Q4 PRN PRN Reason: Fever >100.4 F Carvedilol (Coreg) 25 mg PO BID [facility] Last Admin: 02/03/18 10:08 Dose: Not Given Enoxaparin Sodium (Lovenox) 40 mg SC DAILY [facility] Last Admin: 02/03/18 14:17 Dose: Not Given Furosemide (Lasix) 40 mg PO DAILY [facility] Last Admin: 02/03/18 10:07 Dose: 40 mg Hydromorphone HCl (Dilaudid) 0.5 mg IVP Q4H PRN PRN Reason: Pain, severe (8-10) Hydroxychloroquine Sulfate (Plaquenil) 200 mg PO BID [facility] PRN Reason: Protocol Last Admin: 02/03/18 10:13 Dose: 200 mg Piperacillin Sod/Tazobactam Sod (Zosyn 3.375 Gm Iv Premix) 3.375 gm in 50 mls @ 100 mls/hr IVPB Q8H [facility] PRN Reason: Protocol Last Admin: 02/03/18 13:46 Dose: 100 mls/hr Lactated Ringer's (Lactated Ringer's) 1,000 mls @ 150 mls/hr IV .Q6H40M [facility] Last Admin: 02/03/18 12:19 Dose: 150 mls/hr Ketorolac Tromethamine (Toradol) 30 mg IV Q6 PRN PRN Reason: Pain, moderate (4-7) Lisinopril (Zestril) 10 mg PO DAILY [facility] Last Admin: 02/03/18 10:09 Dose: Not Given Ondansetron HCl (Zofran Inj) 4 mg IVP Q6 PRN PRN Reason: Nausea/Vomiting Pneumococcal Polyvalent Vaccine (Pneumovax 23 Vaccine) 0.5 ml IM .ONCE ONE Stop: 02/04/18 10:01 Spironolactone (Aldactone) 25 mg PO DAILY [facility] Last Admin: 02/03/18 10:09 Dose: 25 mg - Labs Labs: 02/03/18 08:29 02/03/18 11:36 PT 12.6 SECONDS (9.7-12.2) H 02/03/18 14:01 INR 1.2 02/03/18 14:01 APTT 31 SECONDS (21-34) 02/03/18 14:01 Attending/Attestation - Attestation I have personally seen and examined this patient.: Yes I have fully participated in the care of the patient.: Yes I have reviewed all pertinent clinical information, including history, physical exam and plan: Yes Notes (Text): 02/03/18 15:17 Medical attending: Patient was seen and examined by me. Agree with the above note by the resident The pain in the RUQ has decreased a lot. Her LFTs have both decreased as well. As of this moment she had the MRCP but we are still pending the read. She is afebrile, WBCs are ok. Currently not on IV abx Surgery has been consulted. She is medically cleared to undergo surgery for cholesectomy if needed thank you Patel Painter
[2018-02-03 08:39] LABS: BASO % 0.6 % (0.0-2.0); EOS # 0.3 K/uL (0.0-0.7); EOS % 4.8 % (0.0-4.0); HEMOGLOBIN 11.6 g/dL (11.0-16.0); LYMPH # 2.1 K/uL (1.0-4.3); LYMPH % 38.2 % (20.0-40.0); MEAN CELL VOLUME 86.5 fL (81.0-99.0); MEAN CORPUSCULAR HEMOGLOBIN 29.3 pg (27.0-31.0); MEAN CORPUSCULAR HGB CONC 33.9 g/dL (33.0-37.0); MONO # 0.4 K/uL (0.0-0.8); NEUT # 2.7 K/uL (1.8-7.0); NEUT % 49.4 % (50.0-75.0); RBC 3.95 Mil/uL (3.80-5.20); RED CELL DISTRIBUTION WIDTH 13.6 % (11.5-14.5); WHITE BLOOD COUNT 5.5 K/uL (4.8-10.8)
--- NOTE | 2018-02-03 08:43 | CP.PCM.PN ---
<Alison Guaman - Last Filed: 02/03/18 08:39> Subjective - Date & Time of Evaluation Date of Evaluation: 02/03/18 Time of Evaluation: 06:35 - Subjective Subjective: GI Fellow PGY4 Progress Note Pt seen and evaluated at bedside, pt doing well with no complaints of abdominal pain, fevers or chills. She tolerated her clear liquid diet yesterday. Currents NPO for MRCP. ROS: A 12pt ROS was negative except as above. Objective - Vital Signs/Intake and Output Vital Signs (last 24 hours): Temp Pulse Resp BP Pulse Ox 98.1 F 60 21 102/60 97 02/03/18 08:05 02/03/18 08:05 02/03/18 08:05 02/03/18 08:05 02/03/18 08:05 Intake and Output: 02/03/18 02/03/18 06:59 18:59 Intake Total 1850 Balance 1850 - Medications Medications: Current Medications Acetaminophen (Tylenol 325mg Tab) 650 mg PO Q6 PRN PRN Reason: Fever >100.4 F Carvedilol (Coreg) 25 mg PO BID [facility] Last Admin: 02/02/18 18:18 Dose: Not Given Furosemide (Lasix) 40 mg PO DAILY [facility] Hydromorphone HCl (Dilaudid) 0.5 mg IVP Q6H PRN PRN Reason: Pain, severe (8-10) Hydroxychloroquine Sulfate (Plaquenil) 200 mg PO BID [facility] PRN Reason: Protocol Last Admin: 02/02/18 21:20 Dose: 200 mg Sodium Chloride (Sodium Chloride 0.9%) 1,000 mls @ 100 mls/hr IV .Q10H [facility] Last Admin: 02/03/18 00:50 Dose: 100 mls/hr Ketorolac Tromethamine (Toradol) 30 mg IV Q6 PRN PRN Reason: Pain, moderate (4-7) Lisinopril (Zestril) 10 mg PO DAILY [facility] Ondansetron HCl (Zofran Inj) 4 mg IVP Q6 PRN PRN Reason: Nausea/Vomiting Pneumococcal Polyvalent Vaccine (Pneumovax 23 Vaccine) 0.5 ml IM .ONCE ONE Stop: 02/04/18 10:01 Spironolactone (Aldactone) 25 mg PO DAILY [facility] - Labs Labs: 02/02/18 08:09 02/02/18 08:09 - Constitutional Appears: Non-toxic, No Acute Distress - Head Exam Head Exam: ATRAUMATIC, NORMAL INSPECTION, NORMOCEPHALIC - Eye Exam Eye Exam: EOMI, Normal appearance, PERRL - ENT Exam ENT Exam: Mucous Membranes Moist, Normal Exam - Neck Exam Neck Exam: Full ROM, Normal Inspection - Respiratory Exam Respiratory Exam: Clear to Ausculation Bilateral, NORMAL BREATHING PATTERN - Cardiovascular Exam Cardiovascular Exam: REGULAR RHYTHM, RRR - GI/Abdominal Exam GI & Abdominal Exam: Soft, Normal Bowel Sounds - Rectal Exam Rectal Exam: Deferred - Extremities Exam Extremities Exam: Full ROM, Normal Inspection - Back Exam Back Exam: NORMAL INSPECTION - Neurological Exam Neurological Exam: Alert, Awake, Oriented x3 - Psychiatric Exam Psychiatric exam: Normal Affect, Normal Mood - Skin Skin Exam: Dry, Intact, Normal Color, Warm Assessment and Plan - Assessment and Plan (Free Text) Assessment: This is a 47yF with pmhx of HTN, SLE presenting with complaints of two days of upper abdominal pain. 1. Cholelithiasis with sludge 2. Elevated LFTs Plan: -Continue supportive care pain control and antiemetics -IVF hydration -NPO for MRCP and any procedures -Elevated LFTs maybe from cholelithiasis and sludge as seen on imaging vs choledocholithiais -Continue to monitor labs -Will order hepatitis panel, autoimmune serologies for completion -Primary team ordered MRCP, Abd US with no CBD dilation or stone, no signs of cholangitis -Recommend Surgical consult -No indication for abx at this time -Will make further recommendations after MRCP results <Kishan Ellis - Last Filed: 02/03/18 15:08> Objective - Vital Signs/Intake and Output Vital Signs (last 24 hours): Temp Pulse Resp BP Pulse Ox 98.1 F 60 21 111/64 97 02/03/18 08:05 02/03/18 08:05 02/03/18 08:05 02/03/18 10:07 02/03/18 08:45 Intake and Output: 02/03/18 02/03/18 06:59 18:59 Intake Total 1850 Balance 1850 - Medications Medications: Current Medications Acetaminophen (Tylenol 325mg Tab) 650 mg PO Q6 PRN PRN Reason: Fever >100.4 F Acetaminophen (Tylenol 650 Mg Supp) 650 mg [place] Q4 PRN PRN Reason: Fever >100.4 F Carvedilol (Coreg) 25 mg PO BID [facility] Last Admin: 02/03/18 10:08 Dose: Not Given Enoxaparin Sodium (Lovenox) 40 mg SC DAILY [facility] Last Admin: 02/03/18 14:17 Dose: Not Given Furosemide (Lasix) 40 mg PO DAILY [facility] Last Admin: 02/03/18 10:07 Dose: 40 mg Hydromorphone HCl (Dilaudid) 0.5 mg IVP Q4H PRN PRN Reason: Pain, severe (8-10) Hydroxychloroquine Sulfate (Plaquenil) 200 mg PO BID [facility] PRN Reason: Protocol Last Admin: 02/03/18 10:13 Dose: 200 mg Piperacillin Sod/Tazobactam Sod (Zosyn 3.375 Gm Iv Premix) 3.375 gm in 50 mls @ 100 mls/hr IVPB Q8H [facility] PRN Reason: Protocol Last Admin: 02/03/18 13:46 Dose: 100 mls/hr Lactated Ringer's (Lactated Ringer's) 1,000 mls @ 150 mls/hr IV .Q6H40M [facility] Last Admin: 02/03/18 12:19 Dose: 150 mls/hr Ketorolac Tromethamine (Toradol) 30 mg IV Q6 PRN PRN Reason: Pain, moderate (4-7) Lisinopril (Zestril) 10 mg PO DAILY [facility] Last Admin: 02/03/18 10:09 Dose: Not Given Ondansetron HCl (Zofran Inj) 4 mg IVP Q6 PRN PRN Reason: Nausea/Vomiting Pneumococcal Polyvalent Vaccine (Pneumovax 23 Vaccine) 0.5 ml IM .ONCE ONE Stop: 02/04/18 10:01 Spironolactone (Aldactone) 25 mg PO DAILY [facility] Last Admin: 02/03/18 10:09 Dose: 25 mg - Labs Labs: 02/03/18 08:29 02/03/18 11:36 PT 12.6 SECONDS (9.7-12.2) H 02/03/18 14:01 INR 1.2 02/03/18 14:01 APTT 31 SECONDS (21-34) 02/03/18 14:01 Attending/Attestation - Attestation I have personally seen and examined this patient.: Yes I have fully participated in the care of the patient.: Yes I have reviewed all pertinent clinical information, including history, physical exam and plan: Yes Notes (Text): 02/03/18 15:05 I have seen and examined patient with GI fellow. No acute events overnight, she is seen resting in bed comfortably, abdominal pain has resolved. She denies nausea, vomiting, diarrhea, fever/chills. Tolerating PO liquids without difficulty. Review of vitals from today are normal. HTN SLE Obesity Abdominal pain, transaminitis MRCP - reviewed by me, discussed with radiology, showing no evidence of choledocholithiasis - Liquid diet as tolerated - LFTs trending down, continue to monitor - Viral hepatitis panel negative, awaiting results of autoimmune markers - Follow up surgical recommendations regarding potential cholecystectomy - No further planned GI intervention, will sign off case. Please reconsult as necessary, thank you.
[2018-02-03] MEDS ORDERED: Gadodiamide 287 mg/ml 20 ml IV ONE (09:02)
[2018-02-03 09:10] LABS: ALB/GLOB RATIO 1.2 (1.0-2.1); ALBUMIN 4.1 g/dL (3.5-5.0); ALT/SGPT 367 U/L (9-52); AST/SGOT 192 U/L (14-36); BLOOD UREA NITROGEN 10 mg/dL (7-17); CALCIUM 8.9 mg/dl (8.6-10.4); GFR AFRICAN-AMERICAN > 60; GFR NON-AFRICAN AMERICAN > 60
[2018-02-03] MEDS ORDERED: HYDROmorphone 0.5 mg/0.5 ml ISec IVP PRN (11:42)
--- NOTE | 2018-02-03 11:54 | CP.PCM.CON ---
<David Henry - Last Filed: 02/03/18 11:46> History of Present Illness - History of Present Illness History of Present Illness: Surgery 47 F with PMH of cholelithiasis, SLE, HTN Obesity BMI 35 came with sudden onset of Epigastric pain that radiates to her RUQ. Pain started 2 days ago and has gotten worse. Pain is sharp. Reports nausea but no vomiting. Denies fever, chills, diarrhea, sick contact, recent travel, CP , SOB, skin changes, dysuria, hematuria, hematemesis, hematochezia, change in bowel function, change in urine or stool color. This is the second time having these sxs. Last time was 3 month ago and it went away. This time pain is intermittent and worsen. Pt didn't take any pain medication at home. Pain better after pain med. Currently pt is comfortable. Her mother had GB removed. Pt was diagnosed with SLE 10 years ago and has not had symptoms since he has been compliant with medications. Pt is from [place] 18 years ago. US shows large 3.64cm gallstone, 5mm CBD, 2.4mm GB wall and hepatomegaly. LFT is elevated. Surgey is consulted to evaluate for cholelithiasis PMH : See Above PSH : Denies SS: occasional EtOH , no smoking, no ilicit drugs. Meds : See chart Fhx: mpother Cholelithiasis,cholecystectomy. no CA Review of Systems - Review of Systems Review of Systems: See HPI Past Patient History - Infectious Disease Hx of Infectious Diseases: None - Past Social History Smoking Status: Never Smoked - CARDIAC Hx Hypertension: Yes - ENDOCRINE/METABOLIC Hx Systemic Lupus Erythematosus: Yes - PSYCHIATRIC Hx Substance Use: No - SURGICAL HISTORY Hx Surgeries: No - ANESTHESIA Hx Anesthesia: No Meds Allergies/Adverse Reactions: Allergies Allergy/AdvReac Type Severity Reaction Status Date / Time No Known Allergies Allergy Verified 02/02/18 06:38 - Medications Medications: Current Medications Acetaminophen (Tylenol 325mg Tab) 650 mg PO Q6 PRN PRN Reason: Fever >100.4 F Acetaminophen (Tylenol 650 Mg Supp) 650 mg IN Q4 PRN PRN Reason: Fever >100.4 F Carvedilol (Coreg) 25 mg PO BID [facility] Last Admin: 02/03/18 10:08 Dose: Not Given Furosemide (Lasix) 40 mg PO DAILY [facility] Last Admin: 02/03/18 10:07 Dose: 40 mg Hydromorphone HCl (Dilaudid) 0.5 mg IVP Q4H PRN PRN Reason: Pain, severe (8-10) Hydroxychloroquine Sulfate (Plaquenil) 200 mg PO BID [facility] PRN Reason: Protocol Last Admin: 02/03/18 10:13 Dose: 200 mg Piperacillin Sod/Tazobactam (Sod 3.375 gm/ Sodium Chloride) 100 mls @ 200 mls/ hr IVPB Q8H [facility] PRN Reason: Protocol Lactated Ringer's (Lactated Ringer's) 1,000 mls @ 150 mls/hr IV .Q6H40M [facility] Ketorolac Tromethamine (Toradol) 30 mg IV Q6 PRN PRN Reason: Pain, moderate (4-7) Lisinopril (Zestril) 10 mg PO DAILY [facility] Last Admin: 02/03/18 10:09 Dose: Not Given Ondansetron HCl (Zofran Inj) 4 mg IVP Q6 PRN PRN Reason: Nausea/Vomiting Pneumococcal Polyvalent Vaccine (Pneumovax 23 Vaccine) 0.5 ml IM .ONCE ONE Stop: 02/04/18 10:01 Spironolactone (Aldactone) 25 mg PO DAILY [facility] Last Admin: 02/03/18 10:09 Dose: 25 mg Physical Exam - Constitutional Appears: No Acute Distress - Head Exam Head Exam: ATRAUMATIC, NORMAL INSPECTION, NORMOCEPHALIC - Eye Exam Eye Exam: EOMI, Normal appearance, PERRL Pupil Exam: NORMAL ACCOMODATION, PERRL - ENT Exam ENT Exam: Mucous Membranes Moist, Normal Exam - Neck Exam Neck exam: Positive for: Normal Inspection - Respiratory Exam Respiratory Exam: Clear to Auscultation Bilateral, NORMAL BREATHING PATTERN - Cardiovascular Exam Cardiovascular Exam: REGULAR RHYTHM - GI/Abdominal Exam GI & Abdominal Exam: Normal Bowel Sounds, Soft, Tenderness. absent: Distended, Firm, Guarding, Hernia, Pulsatile Mass, Rebound, Rigid Additional comments: Obese, Tender to deep palpation on epigastric area and RUQ area - Exam Exam: NORMAL INSPECTION - Extremities Exam Extremities exam: Positive for: full ROM, normal inspection - Back Exam Back exam: NORMAL INSPECTION - Neurological Exam Neurological exam: Alert, CN II-XII Intact, Normal Gait, Oriented x3, Reflexes Normal - Psychiatric Exam Psychiatric exam: Normal Affect, Normal Mood - Skin Skin Exam: Dry, Intact, Normal Color, Warm Results - Vital Signs Recent Vital Signs: Last Vital Signs Temp 98.1 F 02/03/18 08:05 Pulse 60 02/03/18 08:05 Resp 21 02/03/18 08:05 BP 111/64 02/03/18 10:07 Pulse Ox 97 02/03/18 08:45 - Labs Result Diagrams: 02/03/18 08:29 02/03/18 08:29 Labs: Laboratory Results - last 24 hr 02/02/18 02/02/18 02/02/18 16:43 16:43 16:43 WBC RBC Hgb Hct MCV MCH MCHC RDW Plt Count MPV Neut % (Auto) Lymph % (Auto) [place] % (Auto) Eos % (Auto) Baso % (Auto) Neut # (Auto) Lymph # (Auto) [place] # (Auto) Eos # (Auto) Baso # (Auto) APTT Sodium Potassium Chloride Carbon Dioxide Anion Gap BUN Creatinine Est GFR ( Amer) Est GFR (Non-Af Amer) Random Glucose Calcium Iron 85 TIBC 315 % Saturation 27 Ferritin Total Bilirubin AST ALT Alkaline Phosphatase Total Protein Albumin Globulin Albumin/Globulin Ratio IgG 1539.1 Hepatitis A IgM Ab Negative Hep Bs Antigen Negative Hep B Core IgM Ab Negative Hepatitis C Antibody Negative 02/02/18 02/03/18 02/03/18 16:43 08:29 08:29 WBC 5.5 RBC 3.95 Hgb 11.6 Hct 34.2 MCV 86.5 MCH 29.3 MCHC 33.9 RDW 13.6 Plt Count 210 MPV 9.0 Neut % (Auto) 49.4 L Lymph % (Auto) 38.2 [place] % (Auto) 7.0 Eos % (Auto) 4.8 H Baso % (Auto) 0.6 Neut # (Auto) 2.7 Lymph # (Auto) 2.1 [place] # (Auto) 0.4 Eos # (Auto) 0.3 Baso # (Auto) 0.0 APTT 32 Sodium Potassium Chloride Carbon Dioxide Anion Gap BUN Creatinine Est GFR ( Amer) Est GFR (Non-Af Amer) Random Glucose Calcium Iron TIBC % Saturation Ferritin 237.0 Total Bilirubin AST ALT Alkaline Phosphatase Total Protein Albumin Globulin Albumin/Globulin Ratio IgG Hepatitis A IgM Ab Hep Bs Antigen Hep B Core IgM Ab Hepatitis C Antibody 02/03/18 08:29 WBC RBC Hgb Hct MCV MCH MCHC RDW Plt Count MPV Neut % (Auto) Lymph % (Auto) [place] % (Auto) Eos % (Auto) Baso % (Auto) Neut # (Auto) Lymph # (Auto) [place] # (Auto) Eos # (Auto) Baso # (Auto) APTT Sodium 145 Potassium 3.9 Chloride 109 H Carbon Dioxide 24 Anion Gap 16 BUN 10 Creatinine 0.7 Est GFR ( Amer) > 60 Est GFR (Non-Af Amer) > 60 Random Glucose 92 Calcium 8.9 Iron TIBC % Saturation Ferritin Total Bilirubin 1.3 AST 192 H D ALT 367 H Alkaline Phosphatase 142 H Total Protein 7.6 Albumin 4.1 Globulin 3.5 Albumin/Globulin Ratio 1.2 IgG Hepatitis A IgM Ab Hep Bs Antigen Hep B Core IgM Ab Hepatitis C Antibody Assessment & Plan - Assessment and Plan (Free Text) Assessment: Symptomatic cholelithiasis US: 3.64cm gallstone, 2.4mm GB wall, 5mm CBD , hepatomegaly LFT: elevated. Trending down -Possible OR today or tomorrow pending MRCP -GI on board -ABX -NPO -IVF -Medical clearance for OR for h/o HTN, SLE, obesity -AM labs DW Dr. Mckenna <Adriel Mckenna - Last Filed: 02/04/18 03:01> Meds - Medications Medications: Current Medications Acetaminophen (Tylenol 325mg Tab) 650 mg PO Q6 PRN PRN Reason: Fever >100.4 F Acetaminophen (Tylenol 650 Mg Supp) 650 mg IN Q4 PRN PRN Reason: Fever >100.4 F Carvedilol (Coreg) 25 mg PO BID [facility] Last Admin: 02/03/18 17:18 Dose: 25 mg Enoxaparin Sodium (Lovenox) 40 mg SC DAILY [facility] Last Admin: 02/03/18 14:17 Dose: Not Given Furosemide (Lasix) 40 mg PO DAILY [facility] Last Admin: 02/03/18 10:07 Dose: 40 mg Hydromorphone HCl (Dilaudid) 0.5 mg IVP Q4H PRN PRN Reason: Pain, severe (8-10) Hydroxychloroquine Sulfate (Plaquenil) 200 mg PO BID [facility] PRN Reason: Protocol Last Admin: 02/03/18 17:19 Dose: 200 mg Piperacillin Sod/Tazobactam Sod (Zosyn 3.375 Gm Iv Premix) 3.375 gm in 50 mls @ 100 mls/hr IVPB Q8H [facility] PRN Reason: Protocol Last Admin: 02/03/18 20:35 Dose: 100 mls/hr Lactated Ringer's (Lactated Ringer's) 1,000 mls @ 150 mls/hr IV .Q6H40M [facility] Last Admin: 02/03/18 17:38 Dose: Not Given Ketorolac Tromethamine (Toradol) 30 mg IV Q6 PRN PRN Reason: Pain, moderate (4-7) Lisinopril (Zestril) 10 mg PO DAILY [facility] Last Admin: 02/03/18 10:09 Dose: Not Given Ondansetron HCl (Zofran Inj) 4 mg IVP Q6 PRN PRN Reason: Nausea/Vomiting Pneumococcal Polyvalent Vaccine (Pneumovax 23 Vaccine) 0.5 ml IM .ONCE ONE Stop: 02/04/18 10:01 Spironolactone (Aldactone) 25 mg PO DAILY [facility] Last Admin: 02/03/18 10:09 Dose: 25 mg Results - Vital Signs Recent Vital Signs: Last Vital Signs Temp 98.1 F 02/03/18 23:53 Pulse 61 02/03/18 23:53 Resp 20 02/03/18 23:53 BP 101/60 02/03/18 23:53 Pulse Ox 97 02/04/18 00:02 - Labs Result Diagrams: 02/03/18 08:29 02/03/18 11:36 Labs: Laboratory Results - last 24 hr 02/03/18 02/03/18 02/03/18 08:29 08:29 08:29 WBC 5.5 RBC 3.95 Hgb 11.6 Hct 34.2 MCV 86.5 MCH 29.3 MCHC 33.9 RDW 13.6 Plt Count 210 MPV 9.0 Neut % (Auto) 49.4 L Lymph % (Auto) 38.2 [place] % (Auto) 7.0 Eos % (Auto) 4.8 H Baso % (Auto) 0.6 Neut # (Auto) 2.7 Lymph # (Auto) 2.1 [place] # (Auto) 0.4 Eos # (Auto) 0.3 Baso # (Auto) 0.0 PT INR APTT 32 Sodium 145 Potassium 3.9 Chloride 109 H Carbon Dioxide 24 Anion Gap 16 BUN 10 Creatinine 0.7 Est GFR ( Amer) > 60 Est GFR (Non-Af Amer) > 60 Random Glucose 92 Calcium 8.9 Total Bilirubin 1.3 AST 192 H D ALT 367 H Alkaline Phosphatase 142 H Total Protein 7.6 Albumin 4.1 Globulin 3.5 Albumin/Globulin Ratio 1.2 Urine HCG, Qual Blood Type Antibody Screen 02/03/18 02/03/18 02/03/18 11:36 14:01 14:01 WBC RBC Hgb Hct MCV MCH MCHC RDW Plt Count MPV Neut % (Auto) Lymph % (Auto) [place] % (Auto) Eos % (Auto) Baso % (Auto) Neut # (Auto) Lymph # (Auto) [place] # (Auto) Eos # (Auto) Baso # (Auto) PT 12.6 H INR 1.2 APTT 31 Sodium 145 Potassium 3.9 Chloride 108 H Carbon Dioxide 27 Anion Gap 13 BUN 10 Creatinine 0.7 Est GFR ( Amer) > 60 Est GFR (Non-Af Amer) > 60 Random Glucose 149 H Calcium 9.1 Total Bilirubin 1.2 AST 166 H ALT 356 H Alkaline Phosphatase 123 Total Protein 7.5 Albumin 4.2 Globulin 3.3 Albumin/Globulin Ratio 1.3 Urine HCG, Qual Blood Type O POSITIVE Antibody Screen Negative 02/03/18 15:47 WBC RBC Hgb Hct MCV MCH MCHC RDW Plt Count MPV Neut % (Auto) Lymph % (Auto) [place] % (Auto) Eos % (Auto) Baso % (Auto) Neut # (Auto) Lymph # (Auto) [place] # (Auto) Eos # (Auto) Baso # (Auto) PT INR APTT Sodium Potassium Chloride Carbon Dioxide Anion Gap BUN Creatinine Est GFR ( Amer) Est GFR (Non-Af Amer) Random Glucose Calcium Total Bilirubin AST ALT Alkaline Phosphatase Total Protein Albumin Globulin Albumin/Globulin Ratio Urine HCG, Qual Negative Blood Type Antibody Screen Assessment & Plan - Assessment and Plan (Free Text) Plan: I personally saw and examined the patient at bedside independent of the resident staff and agree with the above. 47 female morbid obesity recurrent episodes of biliary colic over the last 3 months. First episode was 3 months ago lasted 1 day and self-limiting this is very similar pain in nature epigastric. Associated bloating dyspepsia mild right-sided radiation. On my exam she has focal tenderness more so on the right mid epigastrium. Personally reviewed all the imaging reports including CT abdomen and pelvis. Ultrasound which shows a large gallstone without any evidence of cholecystitis. large stone and a long elongated gallbladder. Distal to stone may be causing some obstruction which is why her liver enzymes may be elevated and could also explain her tenderness. I recommend that she undergo a laparoscopic/robotic assisted cholecystectomy with possible IOC under GETA We discussed the risks and benefits of the operation including but not limited to bleeding, infectio, risk of bile duct injury, bile leak need for open surgery. She understands these risks and wishes to proceed. All questions were answered and informed consent obtained. 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
[2018-02-03 12:14] LABS: ALB/GLOB RATIO 1.3 (1.0-2.1); ALBUMIN 4.2 g/dL (3.5-5.0); ALT/SGPT 356 U/L (9-52); AST/SGOT 166 U/L (14-36); BLOOD UREA NITROGEN 10 mg/dL (7-17); CALCIUM 9.1 mg/dl (8.6-10.4); GFR AFRICAN-AMERICAN > 60; GFR NON-AFRICAN AMERICAN > 60
[2018-02-03] MEDS: Lactated Ringer's 1,000 ML IV SCH ×2 (12:19→17:38)
[2018-02-03] MEDS: Piperacill/Tazo 3.375gm in Dex 3.375 GM/50 ML BAG IVPB SCH ×2 (13:46→20:35)
[2018-02-03] MEDS: Enoxaparin 40 mg Syringe SC SCH (14:17)
[2018-02-03 14:29] LABS: INR 1.2; PROTHROMBIN TIME 12.6 SECONDS (9.7-12.2)
--- NOTE | 2018-02-03 16:25 | MRI ---
PROCEDURE: Magnetic Resonance Cholangiopancreatography and MRI abdomen with and without gadolinium HISTORY: COMPARISON: CT abdomen/pelvis 02/02/2018. TECHNIQUE: Multiplanar, multisequence MR images of the abdomen were obtained, including heavily T2 weighted MRCP images of the biliary system. Rotating maximum intensity projection images of the biliary system were generated. Images were obtained prior to and following intravenous gadolinium administration. FINDINGS: MRCP: The common bile duct is of a normal caliber. It measures 5 mm in diameter. No evidence of choledocholithiasis. No intrahepatic biliary ductal dilatation. LIVER: Hepatomegaly. The liver measures 22.2 cm craniocaudal. No mass. Smooth contour. Normal signal intensity. No intrahepatic biliary ductal dilatation. No abnormal enhancement is seen following gadolinium administration. GALLBLADDER: Cholelithiasis. No mural thickening. No pericholecystic fluid or edema. SPLEEN: Unremarkable. PANCREAS: No mass. No abnormal enhancement. No ductal dilatation. ADRENALS: Unremarkable. KIDNEYS: Unremarkable. AORTA: No aneurysm. ASCITES: None. OTHER FINDINGS: None. IMPRESSION: Hepatomegaly. Cholelithiasis without evidence of cholecystitis. No evidence of pancreatitis. No evidence of biliary obstruction. No evidence of choledocholithiasis.
[2018-02-04] MEDS: Lactated Ringer's 1,000 ML IV SCH ×4 (01:50→21:28)
[2018-02-04] MEDS: Piperacill/Tazo 3.375gm in Dex 3.375 GM/50 ML BAG IVPB SCH ×3 (05:05→21:26)
[2018-02-04 06:58] LABS: BASO # 0.1 K/uL (0.0-0.2); BASO % 0.8 % (0.0-2.0); EOS # 0.2 K/uL (0.0-0.7); EOS % 1.8 % (0.0-4.0); HEMOGLOBIN 11.5 g/dL (11.0-16.0); LYMPH # 1.9 K/uL (1.0-4.3); LYMPH % 20.6 % (20.0-40.0); MEAN CELL VOLUME 86.6 fL (81.0-99.0); MEAN CORPUSCULAR HEMOGLOBIN 29.2 pg (27.0-31.0); MEAN CORPUSCULAR HGB CONC 33.7 g/dL (33.0-37.0); MEAN PLATELET VOLUME 8.2 fL (7.2-11.7); MONO # 0.6 K/uL (0.0-0.8); MONO % 6.6 % (0.0-10.0); NEUT # 6.4 K/uL (1.8-7.0); NEUT % 70.2 % (50.0-75.0); RBC 3.93 Mil/uL (3.80-5.20); RED CELL DISTRIBUTION WIDTH 13.5 % (11.5-14.5); WHITE BLOOD COUNT 9.2 K/uL (4.8-10.8)
[2018-02-04 07:06] LABS: INR 1.2; PROTHROMBIN TIME 12.6 SECONDS (9.7-12.2)
[2018-02-04 07:22] LABS: ALB/GLOB RATIO 1.3 (1.0-2.1); ALBUMIN 4.2 g/dL (3.5-5.0); ALT/SGPT 255 U/L (9-52); AST/SGOT 90 U/L (14-36); BLOOD UREA NITROGEN 10 mg/dL (7-17); GFR AFRICAN-AMERICAN > 60; GFR NON-AFRICAN AMERICAN > 60
[2018-02-04] MEDS ORDERED: Bupivacaine HCl 0.25% PF (30 ml) Inj ONE (08:20)
[2018-02-04] MEDS ORDERED: Lidocaine Hydrochloride 15 ML INJ ONE (08:20)
[2018-02-04] MEDS ORDERED: Midazolam 2 MG/2 ML VIAL ONE (08:45)
[2018-02-04] MEDS ORDERED: Propofol 10 mg/ml Inj (20 ML) ONE (08:45)
[2018-02-04 09:33] LABS: CERULOPLASMIN 28 mg/dL (18-53)
[2018-02-04] MEDS ORDERED: Pneumococcal 23-Valent Vaccine IM ONE (10:00)
[2018-02-04] MEDS ORDERED: HYDROmorphone 0.5 mg/0.5 ml ISec IVP PRN (11:42)
[2018-02-04] MEDS ORDERED: Neostigmine Methylsulfate 3mg/3ml Syringe IV ONE (12:07)
--- NOTE | 2018-02-04 12:09 | PCM.SURG1 ---
Surgeon's Initial Post Op Note - Surgeon's Notes Surgeon: Dr. Mckenna Talent Acquisition Sourcer: David Henry PGY2, [place] Type of Anesthesia: General Endo, Local Pre-Operative Diagnosis: cholelithiasis Operative Findings: large cystic artery. large GB, Large Gallstone, posterior branch of cystic artery Post-Operative Diagnosis: Same Operation Performed: robotic assisted laparoscopic cholecystectomy Specimen/Specimens Removed: Gallbladder Estimated Blood Loss: EBL {In ML}: 10 Blood Products Given: N/A Drains Used: No Drains Post-Op Condition: Good Date of Surgery/Procedure: 02/04/18 Time of Surgery/Procedure: 12:09
[2018-02-04] MEDS ORDERED: HYDROmorphone 1 mg/ml ISec IVP PRN (12:41)
--- NOTE | 2018-02-04 13:51 | CP.PCM.PN ---
<Sissy Sim - Last Filed: 02/04/18 15:18> Subjective - Date & Time of Evaluation Date of Evaluation: 02/04/18 Time of Evaluation: 07:00 - Subjective Subjective: Medicine Progress Note: Patient was seen and examined at bedside. Patient is s/p cholecystitis. Patient states she has moderate amount of pain. Objective - Vital Signs/Intake and Output Vital Signs (last 24 hours): Temp Pulse Resp BP Pulse Ox 99 F 65 15 123/71 99 02/04/18 13:15 02/04/18 13:15 02/04/18 13:15 02/04/18 13:15 02/04/18 13:15 Intake and Output: 02/04/18 02/04/18 06:59 18:59 Intake Total 2200 200 Balance 2200 200 - Medications Medications: Current Medications Acetaminophen (Tylenol 325mg Tab) 650 mg PO Q6 PRN PRN Reason: Fever >100.4 F Acetaminophen (Tylenol 650 Mg Supp) 650 mg [place] Q4 PRN PRN Reason: Fever >100.4 F Carvedilol (Coreg) 25 mg PO BID [facility] Last Admin: 02/04/18 10:15 Dose: Not Given Enoxaparin Sodium (Lovenox) 40 mg SC DAILY [facility] Last Admin: 02/03/18 14:17 Dose: Not Given Furosemide (Lasix) 40 mg PO DAILY [facility] Last Admin: 02/04/18 10:15 Dose: Not Given Hydromorphone HCl (Dilaudid) 1 mg IVP Q4H PRN PRN Reason: Pain, severe (8-10) Piperacillin Sod/Tazobactam Sod (Zosyn 3.375 Gm Iv Premix) 3.375 gm in 50 mls @ 100 mls/hr IVPB Q8H [facility] PRN Reason: Protocol Last Admin: 02/04/18 05:05 Dose: 100 mls/hr Lactated Ringer's (Lactated Ringer's) 1,000 mls @ 150 mls/hr IV .Q6H40M [facility] Last Admin: 02/04/18 07:46 Dose: Not Given Lisinopril (Zestril) 10 mg PO DAILY [facility] Last Admin: 02/04/18 10:16 Dose: Not Given Ondansetron HCl (Zofran Inj) 4 mg IVP Q6 PRN PRN Reason: Nausea/Vomiting Spironolactone (Aldactone) 25 mg PO DAILY [facility] Last Admin: 02/04/18 10:15 Dose: Not Given - Labs Labs: 02/04/18 06:54 02/04/18 06:54 PT 12.6 SECONDS (9.7-12.2) H 02/04/18 06:54 INR 1.2 02/04/18 06:54 APTT 35 SECONDS (21-34) H 02/04/18 06:54 Assessment and Plan - Assessment and Plan (Free Text) Assessment: Cholelithiasis - Images: * Abdominal Ultrasound done in ED shows cholelithiasis w/o evidence for cholecystitis * CT abdomen/pelvis done in ED shows cholelithiasis w/o evidence for cholecystitis - GI consult: Dr. Khan --> help appreciated - MRCP (02/03/18): negative for choledocholithiasis - General Consult: Dr. Cornel Mckenna --> help appreciated - EKG: bradycardia NSR - Chest xray: Mild bibasilar atelectasis - Detsky Score: 0 -> Class I 6% risk of complications - Patient is medically optimized - s/p Cholecystectomy 02/04/18 - Labs: AST: 497 --> 192 ALT: 367 --> 367 Alk Phos: 147 --> 142 T Bili: 1.6 --> 1.3 Lipase: 139 WBC: 7.4 --> 5.5 - Afebrile - Medications * Toradol 30mg IV q6hrs prn mod pain * zofran 4mg iv q4hrs prn nausea * Protonix 40mg IV BID History of Hypertension - Currently normotensive - Continue home meds: * Coreg 25mg PO BID * Lasix 40mg PO Daily * Lisinopril 10mg PO daily * Spironolactone 25mg PO daily History of SLE - Continue home meds: * Hydroxychloroquin 200mg PO BID Prophylaxis - Protonix 40mg IV BID - SCD Case discussed with Dr. Madina Sim PGY-1 <Patel Painter - Last Filed: 02/04/18 17:11> Objective - Vital Signs/Intake and Output Vital Signs (last 24 hours): Temp Pulse Resp BP Pulse Ox 98.3 F 60 20 114/81 96 02/04/18 16:15 02/04/18 16:15 02/04/18 16:15 02/04/18 16:15 02/04/18 16:15 Intake and Output: 02/04/18 02/04/18 06:59 18:59 Intake Total 2200 1100 Balance 2200 1100 - Medications Medications: Current Medications Acetaminophen (Tylenol 325mg Tab) 650 mg PO Q6 PRN PRN Reason: Fever >100.4 F Acetaminophen (Tylenol 650 Mg Supp) 650 mg [place] Q4 PRN PRN Reason: Fever >100.4 F Carvedilol (Coreg) 25 mg PO BID [facility] Last Admin: 02/04/18 10:15 Dose: Not Given Enoxaparin Sodium (Lovenox) 40 mg SC DAILY [facility] Last Admin: 02/03/18 14:17 Dose: Not Given Furosemide (Lasix) 40 mg PO DAILY [facility] Last Admin: 02/04/18 10:15 Dose: Not Given Hydromorphone HCl (Dilaudid) 1 mg IVP Q4H PRN PRN Reason: Pain, severe (8-10) Last Admin: 02/04/18 14:54 Dose: 1 mg Piperacillin Sod/Tazobactam Sod (Zosyn 3.375 Gm Iv Premix) 3.375 gm in 50 mls @ 100 mls/hr IVPB Q8H [facility] PRN Reason: Protocol Last Admin: 02/04/18 13:52 Dose: 100 mls/hr Lactated Ringer's (Lactated Ringer's) 1,000 mls @ 150 mls/hr IV .Q6H40M [facility] Last Admin: 02/04/18 15:20 Dose: Not Given Lisinopril (Zestril) 10 mg PO DAILY [facility] Last Admin: 02/04/18 10:16 Dose: Not Given Ondansetron HCl (Zofran Inj) 4 mg IVP Q6 PRN PRN Reason: Nausea/Vomiting Spironolactone (Aldactone) 25 mg PO DAILY [facility] Last Admin: 02/04/18 10:15 Dose: Not Given - Labs Labs: 02/04/18 06:54 02/04/18 06:54 PT 12.6 SECONDS (9.7-12.2) H 02/04/18 06:54 INR 1.2 02/04/18 06:54 APTT 35 SECONDS (21-34) H 02/04/18 06:54 Attending/Attestation - Attestation I have personally seen and examined this patient.: Yes I have fully participated in the care of the patient.: Yes I have reviewed all pertinent clinical information, including history, physical exam and plan: Yes Notes (Text): 02/04/18 17:08 Medical attending: Agree with the above note by the resident The patient in morning went for cholesectomy. Later returned from surgery. Encouraged incentive spirometry Monitor for fever, bleeding, etc. Pain control thank you Patel Painter
[2018-02-04 16:15] VITALS: RESP 20
[2018-02-05] MEDS: Lactated Ringer's 1,000 ML IV SCH ×3 (01:39→11:06)
[2018-02-05] MEDS: Piperacill/Tazo 3.375gm in Dex 3.375 GM/50 ML BAG IVPB SCH (05:06)
[2018-02-05 07:18] LABS: BASO # 0.1 K/uL (0.0-0.2); BASO % 0.5 % (0.0-2.0); EOS % 0.1 % (0.0-4.0); HEMOGLOBIN 11.2 g/dL (11.0-16.0); LYMPH # 1.7 K/uL (1.0-4.3); LYMPH % 18.6 % (20.0-40.0); MEAN CELL VOLUME 86.5 fL (81.0-99.0); MEAN CORPUSCULAR HEMOGLOBIN 29.5 pg (27.0-31.0); MEAN CORPUSCULAR HGB CONC 34.1 g/dL (33.0-37.0); MEAN PLATELET VOLUME 8.5 fL (7.2-11.7); MONO # 0.5 K/uL (0.0-0.8); MONO % 5.7 % (0.0-10.0); NEUT % 75.1 % (50.0-75.0); NRBC % 0.1 % (0.0-2.0); RBC 3.81 Mil/uL (3.80-5.20); RED CELL DISTRIBUTION WIDTH 13.6 % (11.5-14.5); WHITE BLOOD COUNT 9.3 K/uL (4.8-10.8)
--- NOTE | 2018-02-05 07:32 | CP.PCM.PN ---
Addendum entered and electronically signed by Alf Cobb DO 02/05/18 11:55: Addendum to DC plan: No percocet. Given ultram, colace by surgery Original Note: <Alf Cobb - Last Filed: 02/05/18 11:16> Subjective - Date & Time of Evaluation Date of Evaluation: 02/05/18 Time of Evaluation: 07:29 - Subjective Subjective: PGY [address] Mckenna's Service Pt seen and examined at bedside. Nursing reports no acute events overnight. Pt is POD # 1 Cholecystectomy. Patient denies abd pain this AM. Further denies fever, chills, nausea, vomiting, diarrhea, chest pain, palpitations, or SOB. Reports tolerating diet and moving bowels. Objective - Vital Signs/Intake and Output Vital Signs (last 24 hours): Temp Pulse Resp BP Pulse Ox 98.6 F 62 20 119/70 97 02/04/18 23:13 02/04/18 23:13 02/04/18 23:13 02/04/18 23:13 02/04/18 23:13 Intake and Output: 02/05/18 02/05/18 06:59 18:59 Intake Total 3160 Balance 3160 - Medications Medications: Current Medications Acetaminophen (Tylenol 650 Mg Supp) 650 mg MI Q4 PRN PRN Reason: Fever >100.4 F Carvedilol (Coreg) 25 mg PO BID [facility] Last Admin: 02/04/18 17:47 Dose: 25 mg Enoxaparin Sodium (Lovenox) 40 mg SC DAILY [facility] Last Admin: 02/03/18 14:17 Dose: Not Given Furosemide (Lasix) 40 mg PO DAILY [facility] Last Admin: 02/04/18 10:15 Dose: Not Given Hydromorphone HCl (Dilaudid) 1 mg IVP Q4H PRN PRN Reason: Pain, severe (8-10) Last Admin: 02/04/18 14:54 Dose: 1 mg Piperacillin Sod/Tazobactam Sod (Zosyn 3.375 Gm Iv Premix) 3.375 gm in 50 mls @ 100 mls/hr IVPB Q8H [facility] PRN Reason: Protocol Last Admin: 02/05/18 05:06 Dose: 100 mls/hr Lactated Ringer's (Lactated Ringer's) 1,000 mls @ 150 mls/hr IV .Q6H40M [facility] Last Admin: 02/05/18 04:36 Dose: Not Given Lisinopril (Zestril) 10 mg PO DAILY [facility] Last Admin: 02/04/18 10:16 Dose: Not Given Ondansetron HCl (Zofran Inj) 4 mg IVP Q6 PRN PRN Reason: Nausea/Vomiting Spironolactone (Aldactone) 25 mg PO DAILY [facility] Last Admin: 02/04/18 10:15 Dose: Not Given - Labs Labs: 02/05/18 07:07 02/04/18 06:54 PT 12.6 SECONDS (9.7-12.2) H 02/04/18 06:54 INR 1.2 02/04/18 06:54 APTT 35 SECONDS (21-34) H 02/04/18 06:54 - Additional Findings Additional findings: - Constitutional Appears: No Acute Distress - Head Exam Head Exam: ATRAUMATIC, NORMAL INSPECTION - Eye Exam Eye Exam: EOMI, Normal appearance - ENT Exam ENT Exam: Mucous Membranes Moist - Respiratory Exam Respiratory Exam: Clear to Ausculation Bilateral, NORMAL BREATHING PATTERN - Cardiovascular Exam Cardiovascular Exam: REGULAR RHYTHM, +S1, +S2 - GI/Abdominal Exam GI & Abdominal Exam: Soft, Normal Bowel Sounds. absent: Tenderness - Laparoscopic incisions noted. C/Di/I - Extremities Exam Extremities Exam: Normal Inspection - Neurological Exam Neurological Exam: Alert, Awake, Oriented x3 - Psychiatric Exam Psychiatric exam: Normal Affect - Skin Skin Exam: Normal Color Assessment and Plan - Assessment and Plan (Free Text) Plan: Cholelithiasis Admit to med/surg Afebrile; WBC GI consult: Dr. Khan --> help appreciated General Consult: Dr. Cornel Mckenna --> help appreciated s/p Cholecystectomy 02/04/18 * Abdominal Ultrasound done in ED shows cholelithiasis w/o evidence for cholecystitis * CT abdomen/pelvis done in ED shows cholelithiasis w/o evidence for cholecystitis * MRCP (02/03/18): negative for choledocholithiasis - EKG: bradycardia NSR - Chest xray: Mild bibasilar atelectasis - Detsky Score: 0 -> Class I 6% risk of complications - Patient is medically optimized - Medications * Toradol 30mg IV q6hrs prn mod pain * zofran 4mg iv q4hrs prn nausea * Protonix 40mg IV BID Bradycardia - EKG: bradycardia NSR HOLD Coreg 02/05 AM Hyperbilirubinemia Mild; Resolved T Bili: 1.6 --> 1.3 Transaminitis Improving AST: 497 --> 192 ALT: 367 --> 367 Alk Phos: 147 --> 142 History of Hypertension - Currently normotensive - Continue home meds: * Coreg 25mg PO BID * Lasix 40mg PO Daily * Lisinopril 10mg PO daily * Spironolactone 25mg PO daily History of SLE - Continue home meds: * Hydroxychloroquin 200mg PO BID Prophylaxis - Protonix 40mg IV BID - SCD Disposition: Pt clear for dc by surgery. Pt should f/u in Dr. Mckenna's office in 2-3 weeks. Given work note and prescription for 3 days of percocet. Alf Cobb PGY2 Case discussed with Dr. Painter <Patel Painter - Last Filed: 02/05/18 14:10> Objective - Vital Signs/Intake and Output Vital Signs (last 24 hours): Temp Pulse Resp BP Pulse Ox 98.2 F 51 L 20 105/59 L 96 02/05/18 07:00 02/05/18 07:00 02/05/18 07:00 02/05/18 10:19 02/05/18 07:00 Intake and Output: 02/05/18 02/05/18 06:59 18:59 Intake Total 3160 Balance 3160 - Medications Medications: Current Medications Acetaminophen (Tylenol 650 Mg Supp) 650 mg MI Q4 PRN PRN Reason: Fever >100.4 F Carvedilol (Coreg) 25 mg PO BID [facility] Last Admin: 02/05/18 10:19 Dose: Not Given Enoxaparin Sodium (Lovenox) 40 mg SC DAILY [facility] Last Admin: 02/05/18 10:18 Dose: 40 mg Furosemide (Lasix) 40 mg PO DAILY [facility] Last Admin: 02/05/18 10:17 Dose: 40 mg Hydromorphone HCl (Dilaudid) 1 mg IVP Q4H PRN PRN Reason: Pain, severe (8-10) Last Admin: 02/04/18 14:54 Dose: 1 mg Lactated Ringer's (Lactated Ringer's) 1,000 mls @ 150 mls/hr IV .Q6H40M [facility] Last Admin: 02/05/18 11:06 Dose: 150 mls/hr Lisinopril (Zestril) 10 mg PO DAILY [facility] Last Admin: 02/05/18 10:12 Dose: 10 mg Ondansetron HCl (Zofran Inj) 4 mg IVP Q6 PRN PRN Reason: Nausea/Vomiting Oxycodone/Acetaminophen (Percocet 5/325 Mg Tab) 2 tab PO Q4H PRN PRN Reason: Pain, Mild (1-3) Stop: 02/08/18 11:31 Spironolactone (Aldactone) 25 mg PO DAILY [facility] Last Admin: 02/05/18 10:12 Dose: 25 mg - Labs Labs: 02/05/18 07:07 02/05/18 07:07 PT 12.6 SECONDS (9.7-12.2) H 02/04/18 06:54 INR 1.2 02/04/18 06:54 APTT 35 SECONDS (21-34) H 02/04/18 06:54 Attending/Attestation - Attestation I have personally seen and examined this patient.: Yes I have fully participated in the care of the patient.: Yes I have reviewed all pertinent clinical information, including history, physical exam and plan: Yes Notes (Text): 02/05/18 14:10 Medical attending: Patient was seen and examined by me, agrees the above note by the director medical. Patient is status post cholecystectomy done on 02/04. The patient reports the pain is under control at this time. She did not have any acute events overnight. She does not have white blood cell count she is currently afebrile. She is able to walk around on her own. She reports that she feels well enough to be discharged, the patient will be sent home with pain medication Ultram and Colace. She is aware that she'll need to follow-up with surgery outpatient thank you Patel Painter
[2018-02-05 08:28] LABS: ALB/GLOB RATIO 1.2 (1.0-2.1); ALT/SGPT 190 U/L (9-52); AST/SGOT 67 U/L (14-36); BLOOD UREA NITROGEN 12 mg/dL (7-17); CALCIUM 9.2 mg/dl (8.6-10.4); GFR AFRICAN-AMERICAN > 60; GFR NON-AFRICAN AMERICAN > 60
[2018-02-05 08:36] VITALS: PULSE 51; TEMP 98.2; O2SAT 96
--- NOTE | 2018-02-05 09:16 | CP.PCM.PN ---
<CarlDavid - Last Filed: 02/05/18 09:13> Subjective - Date & Time of Evaluation Date of Evaluation: 02/05/18 Time of Evaluation: 09:13 - Subjective Subjective: Surgery Pt seen and examined. Pt underwent surgery yesterday. Tolerated it well. Denies fever, nausea, diarrhea, CP, SOB. Pain controlled. Tolerating diet. Objective - Vital Signs/Intake and Output Vital Signs (last 24 hours): Temp Pulse Resp BP Pulse Ox 98.2 F 51 L 20 113/65 96 02/05/18 07:00 02/05/18 07:00 02/05/18 07:00 02/05/18 07:00 02/05/18 07:00 Intake and Output: 02/05/18 02/05/18 06:59 18:59 Intake Total 3160 Balance 3160 - Medications Medications: Current Medications Acetaminophen (Tylenol 650 Mg Supp) 650 mg [place] Q4 PRN PRN Reason: Fever >100.4 F Carvedilol (Coreg) 25 mg PO BID [facility] Last Admin: 02/04/18 17:47 Dose: 25 mg Enoxaparin Sodium (Lovenox) 40 mg SC DAILY [facility] Last Admin: 02/03/18 14:17 Dose: Not Given Furosemide (Lasix) 40 mg PO DAILY [facility] Last Admin: 02/04/18 10:15 Dose: Not Given Hydromorphone HCl (Dilaudid) 1 mg IVP Q4H PRN PRN Reason: Pain, severe (8-10) Last Admin: 02/04/18 14:54 Dose: 1 mg Piperacillin Sod/Tazobactam Sod (Zosyn 3.375 Gm Iv Premix) 3.375 gm in 50 mls @ 100 mls/hr IVPB Q8H [facility] PRN Reason: Protocol Last Admin: 02/05/18 05:06 Dose: 100 mls/hr Lactated Ringer's (Lactated Ringer's) 1,000 mls @ 150 mls/hr IV .Q6H40M [facility] Last Admin: 02/05/18 04:36 Dose: Not Given Lisinopril (Zestril) 10 mg PO DAILY [facility] Last Admin: 02/04/18 10:16 Dose: Not Given Ondansetron HCl (Zofran Inj) 4 mg IVP Q6 PRN PRN Reason: Nausea/Vomiting Spironolactone (Aldactone) 25 mg PO DAILY [facility] Last Admin: 02/04/18 10:15 Dose: Not Given - Labs Labs: 02/05/18 07:07 02/05/18 07:07 PT 12.6 SECONDS (9.7-12.2) H 02/04/18 06:54 INR 1.2 02/04/18 06:54 APTT 35 SECONDS (21-34) H 02/04/18 06:54 - Constitutional Appears: No Acute Distress - Head Exam Head Exam: ATRAUMATIC, NORMAL INSPECTION, NORMOCEPHALIC - Eye Exam Eye Exam: EOMI, Normal appearance, PERRL Pupil Exam: NORMAL ACCOMODATION, PERRL - ENT Exam ENT Exam: Mucous Membranes Moist, Normal Exam - Neck Exam Neck Exam: Full ROM, Normal Inspection. absent: Lymphadenopathy - Respiratory Exam Respiratory Exam: Clear to Ausculation Bilateral, NORMAL BREATHING PATTERN - Cardiovascular Exam Cardiovascular Exam: REGULAR RHYTHM, +S1, +S2. absent: Murmur - GI/Abdominal Exam GI & Abdominal Exam: Soft, Normal Bowel Sounds. absent: Tenderness Additional comments: Incision C/D/I - Rectal Exam Rectal Exam: NORMAL INSPECTION - Extremities Exam Extremities Exam: Full ROM, Normal Capillary Refill, Normal Inspection. absent : Joint Swelling, Pedal Edema - Back Exam Back Exam: NORMAL INSPECTION - Neurological Exam Neurological Exam: Alert, Awake, CN II-XII Intact, Normal Gait, Oriented x3 - Skin Skin Exam: Dry, Intact, Normal Color, Warm Assessment and Plan - Assessment and Plan (Free Text) Assessment: POD 1 s/p robotic cholecystectomy -Clear for DC for surgical standpoint -follow up at Dr. Mckenna's office in 2-[address] Mckenna <Adriel Mckenna - Last Filed: 02/05/18 11:06> Objective - Vital Signs/Intake and Output Vital Signs (last 24 hours): Temp Pulse Resp BP Pulse Ox 98.2 F 51 L 20 105/59 L 96 02/05/18 07:00 02/05/18 07:00 02/05/18 07:00 02/05/18 10:19 02/05/18 07:00 Intake and Output: 02/05/18 02/05/18 06:59 18:59 Intake Total 3160 Balance 3160 - Medications Medications: Current Medications Acetaminophen (Tylenol 650 Mg Supp) 650 mg [place] Q4 PRN PRN Reason: Fever >100.4 F Carvedilol (Coreg) 25 mg PO BID [facility] Last Admin: 02/05/18 10:19 Dose: Not Given Enoxaparin Sodium (Lovenox) 40 mg SC DAILY [facility] Last Admin: 02/05/18 10:18 Dose: 40 mg Furosemide (Lasix) 40 mg PO DAILY [facility] Last Admin: 02/05/18 10:17 Dose: 40 mg Hydromorphone HCl (Dilaudid) 1 mg IVP Q4H PRN PRN Reason: Pain, severe (8-10) Last Admin: 02/04/18 14:54 Dose: 1 mg Piperacillin Sod/Tazobactam Sod (Zosyn 3.375 Gm Iv Premix) 3.375 gm in 50 mls @ 100 mls/hr IVPB Q8H [facility] PRN Reason: Protocol Last Admin: 02/05/18 05:06 Dose: 100 mls/hr Lactated Ringer's (Lactated Ringer's) 1,000 mls @ 150 mls/hr IV .Q6H40M [facility] Last Admin: 02/05/18 04:36 Dose: Not Given Lisinopril (Zestril) 10 mg PO DAILY [facility] Last Admin: 02/05/18 10:12 Dose: 10 mg Ondansetron HCl (Zofran Inj) 4 mg IVP Q6 PRN PRN Reason: Nausea/Vomiting Spironolactone (Aldactone) 25 mg PO DAILY [facility] Last Admin: 02/05/18 10:12 Dose: 25 mg - Labs Labs: 02/05/18 07:07 02/05/18 07:07 PT 12.6 SECONDS (9.7-12.2) H 02/04/18 06:54 INR 1.2 02/04/18 06:54 APTT 35 SECONDS (21-34) H 02/04/18 06:54 Assessment and Plan - Assessment and Plan (Free Text) Plan: I saw and examined the patient at bedside this am, independent of the resident staff. Agree with above assessment and plan. No nause. Tolerating diet. Pain controlled. Looks well. Abd soft. Incisions clean. Ok for discharge home. Low fat diet on discharge. Follow up in clinic 2-3 weeks. Patient given office number to call and schedule appt.
[2018-02-05] MEDS: Enoxaparin 40 mg Syringe SC SCH (10:18)
[2018-02-05 10:19] VITALS: BP 105/59
[2018-02-05] MEDS ORDERED: Oxycodone/Acetaminophen 5/325 mg Tab PO PRN (11:30)
--- NOTE | 2018-02-05 12:11 | CP.PCM.DIS ---
<Alf Cobb - Last Filed: 02/05/18 12:17> Provider - Provider Date of Admission: 02/04/18 13:28 Attending physician: Patel Painter DO Primary care physician: Radha Consults: Gen Surg: Dr. Adriel Pereyra Time Spent in preparation of Discharge (in minutes): 45 Diagnosis - Discharge Diagnosis (1) Biliary colic Status: Acute Comment: see hospital course Hospital Course - Lab Results Lab Results: Most Recent Lab Values WBC 9.3 K/uL (4.8-10.8) 02/05/18 07:07 RBC 3.81 Mil/uL (3.80-5.20) 02/05/18 07:07 Hgb 11.2 g/dL (11.0-16.0) 02/05/18 07:07 Hct 33.0 % (34.0-47.0) L 02/05/18 07:07 MCV 86.5 fL (81.0-99.0) 02/05/18 07:07 MCH 29.5 pg (27.0-31.0) 02/05/18 07:07 MCHC 34.1 g/dL (33.0-37.0) 02/05/18 07:07 RDW 13.6 % (11.5-14.5) 02/05/18 07:07 Plt Count 203 K/uL (130-400) 02/05/18 07:07 MPV 8.5 fL (7.2-11.7) 02/05/18 07:07 Neut % (Auto) 75.1 % (50.0-75.0) H 02/05/18 07:07 Lymph % (Auto) 18.6 % (20.0-40.0) L 02/05/18 07:07 Barnes % (Auto) 5.7 % (0.0-10.0) 02/05/18 07:07 Eos % (Auto) 0.1 % (0.0-4.0) 02/05/18 07:07 Baso % (Auto) 0.5 % (0.0-2.0) 02/05/18 07:07 Neut # (Auto) 7.0 K/uL (1.8-7.0) 02/05/18 07:07 Lymph # (Auto) 1.7 K/uL (1.0-4.3) 02/05/18 07:07 Barnes # (Auto) 0.5 K/uL (0.0-0.8) 02/05/18 07:07 Eos # (Auto) 0.0 K/uL (0.0-0.7) 02/05/18 07:07 Baso # (Auto) 0.1 K/uL (0.0-0.2) 02/05/18 07:07 PT 12.6 SECONDS (9.7-12.2) H 02/04/18 06:54 INR 1.2 02/04/18 06:54 APTT 35 SECONDS (21-34) H 02/04/18 06:54 Sodium 143 mmol/L (132-148) 02/05/18 07:07 Potassium 4.2 mmol/L (3.6-5.2) 02/05/18 07:07 Chloride 107 mmol/L (98-107) 02/05/18 07:07 Carbon Dioxide 25 mmol/L (22-30) 02/05/18 07:07 Anion Gap 15 (10-20) 02/05/18 07:07 BUN 12 mg/dL (7-17) 02/05/18 07:07 Creatinine 0.7 mg/dL (0.7-1.2) 02/05/18 07:07 Est GFR ( Amer) > 60 02/05/18 07:07 Est GFR (Non-Af Amer) > 60 02/05/18 07:07 Random Glucose 120 mg/dL (65-105) H 02/05/18 07:07 Calcium 9.2 mg/dl (8.6-10.4) 02/05/18 07:07 Phosphorus 3.8 mg/dL (2.5-4.5) 02/05/18 07:07 Magnesium 1.9 mg/dL (1.6-2.3) 02/05/18 07:07 Iron 85 ug/dL (37-170) 02/02/18 16:43 TIBC 315 ug/dL (250-450) 02/02/18 16:43 % Saturation 27 (20-55) 02/02/18 16:43 Ferritin 237.0 ng/mL 02/02/18 16:43 Total Bilirubin 1.1 mg/dL (0.2-1.3) 02/05/18 07:07 AST 67 U/L (14-36) H D 02/05/18 07:07 ALT 190 U/L (9-52) H D 02/05/18 07:07 Alkaline Phosphatase 106 U/L (38-126) 02/05/18 07:07 Troponin I < 0.0120 ng/mL (0.00-0.120) 02/02/18 08:09 Total Protein 7.4 g/dL (6.3-8.3) 02/05/18 07:07 Albumin 4.0 g/dL (3.5-5.0) 02/05/18 07:07 Globulin 3.4 gm/dL (2.2-3.9) 02/05/18 07:07 Albumin/Globulin Ratio 1.2 (1.0-2.1) 02/05/18 07:07 Ceruloplasmin 28 mg/dL (18-53) 02/02/18 16:43 Lipase 139 U/L (23-300) 02/02/18 08:09 Urine Color [place] (YELLOW) 02/02/18 07:28 Urine Clarity Hazy (Clear) 02/02/18 07:28 Urine pH 7.0 (5.0-8.0) 02/02/18 07:28 Ur Specific [place] 1.018 (1.003-1.030) 02/02/18 07:28 Urine Protein Negative mg/dL (NEGATIVE) 02/02/18 07:28 Urine Glucose (UA) Normal mg/dL (Normal) 02/02/18 07:28 Urine Ketones Negative mg/dL (NEGATIVE) 02/02/18 07:28 Urine Blood 1+ (NEGATIVE) H 02/02/18 07:28 Urine Nitrate Negative (NEGATIVE) 02/02/18 07:28 Urine Bilirubin Negative (NEGATIVE) 02/02/18 07:28 Urine Urobilinogen 2.0 mg/dL (0.2-1.0) H 02/02/18 07:28 Ur Leukocyte Esterase Trace [place]/uL (Negative) H 02/02/18 07:28 Urine WBC (Auto) 5 /hpf (0-5) 02/02/18 07:28 Urine RBC (Auto) 4 /hpf (0-3) H 02/02/18 07:28 Ur Squamous Epith Cells 14 /hpf (0-5) H 02/02/18 07:28 Ur Transition Epith Cell 1 /hpf (0-3) 02/02/18 07:28 Urine Bacteria Rare (<OCC) 02/02/18 07:28 Urine HCG, Qual Negative (NEGATIVE) 02/03/18 15:47 IgG 1539.1 mg/dL (700.0-1600.0) 02/02/18 16:43 Anti-Mitochondrial Ab Negative (Negative) 02/02/18 16:43 Hepatitis A IgM Ab Negative (NEGATIVE) 02/02/18 16:43 Hep Bs Antigen Negative (NEGATIVE) 02/02/18 16:43 Hep B Core IgM Ab Negative (NEGATIVE) 02/02/18 16:43 Hepatitis C Antibody Negative (NEGATIVE) 02/02/18 16:43 Blood Type O POSITIVE 02/03/18 14:01 Antibody Screen Negative 02/03/18 14:01 - Hospital Course Hospital Course: On admission: Pt is 47 year old female with hx of SLE and hypertension. She is presenting today with 1 day hx of upper abdominal pain. She states that she has experienced this pain in the past and it has subsided on its own historically. Her most recent bout of pain started yesterday and has been waxing and waning since onset. She denies vomiting, fever, chest pain, shortness of breath, diarrhea, constipation, irregular bowel/bladded habits, hematochezia, dysuria. She is unable to make any distinct association between food and the abdominal pain, as it occurs both on an empty stomach as well as after meals. Her pain has subsided since she first arrived and states that she is okay right now. During examination the patient appears comfortable and is laying in bed. Hospital course: Pt admitted on 02/02/18 for upper abd pain. Abdominal Ultrasound and CT A/P done in ED showed cholelithiasis w/o evidence for cholecystitis. Dr Khan, GI consulted. Pt with transaminitis - hepatitis panel negative. MRCP ordered for next day which showed no evidence of choledocholithiasis. Gen Surg, Dr. Adriel pereyra consulted. Dr. Pereyra recommend that she undergo a laparoscopic/robotic assisted cholecystectomy. Pt agreed and consented. Cholecystectomy performed on 02/04/18. Pt afebrile, no WBC count. Discharged on 02/05 with RX of ultram and colace. Will f/u with Dr. Pereyra in 3-4 weeks. Pt with history of chronic conditions: SLE and HTN. Home meds were continued as documented in EMR. - Date & Time of H&P Date of H&P: 02/02/18 Time of H&P: 07:47 Discharge Exam - Head Exam Head Exam: ATRAUMATIC, NORMAL INSPECTION, NORMOCEPHALIC - Additional Findings Additional findings: - Constitutional Appears: No Acute Distress - Head Exam Head Exam: ATRAUMATIC, NORMAL INSPECTION - Eye Exam Eye Exam: EOMI, Normal appearance - ENT Exam ENT Exam: Mucous Membranes Moist - Respiratory Exam Respiratory Exam: Clear to Ausculation Bilateral, NORMAL BREATHING PATTERN - Cardiovascular Exam Cardiovascular Exam: REGULAR RHYTHM, +S1, +S2 - GI/Abdominal Exam GI & Abdominal Exam: Soft, Normal Bowel Sounds. absent: Tenderness - Laparoscopic incisions noted. C/Di/I - Extremities Exam Extremities Exam: Normal Inspection - Neurological Exam Neurological Exam: Alert, Awake, Oriented x3 - Psychiatric Exam Psychiatric exam: Normal Affect - Skin Skin Exam: Normal Color Discharge Plan - Discharge Medications Prescriptions: Docusate [Colace] 100 mg PO DAILY #10 cap traMADol [Ultram] 50 mg PO Q6H PRN #20 tab PRN Reason: Pain, Severe (8-10) - Follow Up Plan Condition: GOOD Disposition: HOME/ ROUTINE Instructions: Cholecystectomy, Laparoscopic Surgery, Gallstones (DC), Docusate , Tramadol Additional Instructions: Pt stable for discharge per Dr. Painter Pt given prescription for percocet for pain control. She may restart other home medications. Pt should follow up with PMD after discharge for follow up. She should also follow up with surgeon Dr. Pereyra in 3-4 weeks at her office. Pt should return to the ED if symptoms return or worsen. Patient verbalized understanding to these instructions and agreed. Prescribed Medications by surgical team: Ultram 50 mg PO Q6H PRN (#20) Colace 100mg PO BID Instructions per surgery: follow up at Dr. pereyra office in 3-4 week OK to take shower tomorrow Leave glue on Low fat diet Referrals: Adriel Pereyra MD [Staff Provider] - <Patel Painter H - Last Filed: 02/05/18 14:15> Provider - Provider Date of Admission: 02/04/18 13:28 Attending physician: Patel Painter, DO Hospital Course - Lab Results Lab Results: Most Recent Lab Values WBC 9.3 K/uL (4.8-10.8) 02/05/18 07:07 RBC 3.81 Mil/uL (3.80-5.20) 02/05/18 07:07 Hgb 11.2 g/dL (11.0-16.0) 02/05/18 07:07 Hct 33.0 % (34.0-47.0) L 02/05/18 07:07 MCV 86.5 fL (81.0-99.0) 02/05/18 07:07 MCH 29.5 pg (27.0-31.0) 02/05/18 07:07 MCHC 34.1 g/dL (33.0-37.0) 02/05/18 07:07 RDW 13.6 % (11.5-14.5) 02/05/18 07:07 Plt Count 203 K/uL (130-400) 02/05/18 07:07 MPV 8.5 fL (7.2-11.7) 02/05/18 07:07 Neut % (Auto) 75.1 % (50.0-75.0) H 02/05/18 07:07 Lymph % (Auto) 18.6 % (20.0-40.0) L 02/05/18 07:07 Barnes % (Auto) 5.7 % (0.0-10.0) 02/05/18 07:07 Eos % (Auto) 0.1 % (0.0-4.0) 02/05/18 07:07 Baso % (Auto) 0.5 % (0.0-2.0) 02/05/18 07:07 Neut # (Auto) 7.0 K/uL (1.8-7.0) 02/05/18 07:07 Lymph # (Auto) 1.7 K/uL (1.0-4.3) 02/05/18 07:07 Barnes # (Auto) 0.5 K/uL (0.0-0.8) 02/05/18 07:07 Eos # (Auto) 0.0 K/uL (0.0-0.7) 02/05/18 07:07 Baso # (Auto) 0.1 K/uL (0.0-0.2) 02/05/18 07:07 PT 12.6 SECONDS (9.7-12.2) H 02/04/18 06:54 INR 1.2 02/04/18 06:54 APTT 35 SECONDS (21-34) H 02/04/18 06:54 Sodium 143 mmol/L (132-148) 02/05/18 07:07 Potassium 4.2 mmol/L (3.6-5.2) 02/05/18 07:07 Chloride 107 mmol/L (98-107) 02/05/18 07:07 Carbon Dioxide 25 mmol/L (22-30) 02/05/18 07:07 Anion Gap 15 (10-20) 02/05/18 07:07 BUN 12 mg/dL (7-17) 02/05/18 07:07 Creatinine 0.7 mg/dL (0.7-1.2) 02/05/18 07:07 Est GFR ( Amer) > 60 02/05/18 07:07 Est GFR (Non-Af Amer) > 60 02/05/18 07:07 Random Glucose 120 mg/dL (65-105) H 02/05/18 07:07 Calcium 9.2 mg/dl (8.6-10.4) 02/05/18 07:07 Phosphorus 3.8 mg/dL (2.5-4.5) 02/05/18 07:07 Magnesium 1.9 mg/dL (1.6-2.3) 02/05/18 07:07 Iron 85 ug/dL (37-170) 02/02/18 16:43 TIBC 315 ug/dL (250-450) 02/02/18 16:43 % Saturation 27 (20-55) 02/02/18 16:43 Ferritin 237.0 ng/mL 02/02/18 16:43 Total Bilirubin 1.1 mg/dL (0.2-1.3) 02/05/18 07:07 AST 67 U/L (14-36) H D 02/05/18 07:07 ALT 190 U/L (9-52) H D 02/05/18 07:07 Alkaline Phosphatase 106 U/L (38-126) 02/05/18 07:07 Troponin I < 0.0120 ng/mL (0.00-0.120) 02/02/18 08:09 Total Protein 7.4 g/dL (6.3-8.3) 02/05/18 07:07 Albumin 4.0 g/dL (3.5-5.0) 02/05/18 07:07 Globulin 3.4 gm/dL (2.2-3.9) 02/05/18 07:07 Albumin/Globulin Ratio 1.2 (1.0-2.1) 02/05/18 07:07 Ceruloplasmin 28 mg/dL (18-53) 02/02/18 16:43 Lipase 139 U/L (23-300) 02/02/18 08:09 Urine Color [place] (YELLOW) 02/02/18 07:28 Urine Clarity Hazy (Clear) 02/02/18 07:28 Urine pH 7.0 (5.0-8.0) 02/02/18 07:28 Ur Specific [place] 1.018 (1.003-1.030) 02/02/18 07:28 Urine Protein Negative mg/dL (NEGATIVE) 02/02/18 07:28 Urine Glucose (UA) Normal mg/dL (Normal) 02/02/18 07:28 Urine Ketones Negative mg/dL (NEGATIVE) 02/02/18 07:28 Urine Blood 1+ (NEGATIVE) H 02/02/18 07:28 Urine Nitrate Negative (NEGATIVE) 02/02/18 07:28 Urine Bilirubin Negative (NEGATIVE) 02/02/18 07:28 Urine Urobilinogen 2.0 mg/dL (0.2-1.0) H 02/02/18 07:28 Ur Leukocyte Esterase Trace [place]/uL (Negative) H 02/02/18 07:28 Urine WBC (Auto) 5 /hpf (0-5) 02/02/18 07:28 Urine RBC (Auto) 4 /hpf (0-3) H 02/02/18 07:28 Ur Squamous Epith Cells 14 /hpf (0-5) H 02/02/18 07:28 Ur Transition Epith Cell 1 /hpf (0-3) 02/02/18 07:28 Urine Bacteria Rare (<OCC) 02/02/18 07:28 Urine HCG, Qual Negative (NEGATIVE) 02/03/18 15:47 IgG 1539.1 mg/dL (700.0-1600.0) 02/02/18 16:43 Anti-Mitochondrial Ab Negative (Negative) 02/02/18 16:43 Hepatitis A IgM Ab Negative (NEGATIVE) 02/02/18 16:43 Hep Bs Antigen Negative (NEGATIVE) 02/02/18 16:43 Hep B Core IgM Ab Negative (NEGATIVE) 02/02/18 16:43 Hepatitis C Antibody Negative (NEGATIVE) 02/02/18 16:43 Blood Type O POSITIVE 02/03/18 14:01 Antibody Screen Negative 02/03/18 14:01 Attending/Attestation - Attestation I have personally seen and examined this patient.: Yes I have fully participated in the care of the patient.: Yes I have reviewed all pertinent clinical information, including history, physical exam and plan: Yes Notes (Text): Medical attending: Patient was seen and examined by me as well. Agree with the above note by the resident. We saw the patient together As mentioned previously, the patient is S/P cholesectomy done on 02/04. She reported doing well. Pain was under control. She did not have nausea or vommitting. Inspection and examination of the abdomen showed no bleeding. The areas of the laprascopic insertion were dry, clean. She denied shortness of breath, denied chest pain, denied fevers, denied headaches Review of the lab work shows Hgb is stable and also that the WBC is stable BP and HR stable, afebrile Patient is aware she needs to follow up with surgery later on thank you Patel Painter
--- NOTE | 2018-02-05 15:08 | PCM.OP ---
Operative Report - Operative Report Date of Surgery/Procedure: 02/04/18 Time of Surgery/Procedure: 09:00 Surgeon: Adriel Mckenna MD Delivery Technician: David Henry DO PGY2; Lila SIMPSON Anesthesia/Sedation: General; 1% lidocaine/0.25%marcaine mix local Pre-Operative Diagnosis: Symptomatic Cholelithiasis, recurrent. Morbid Obesity. BMI 35. Lupus Post-Operative Diagnosis: Symptomatic Cholelithiasis, recurrent. Morbid Obesity. BMI 35. Lupus Indication for Surgery: This is a 47-year-old female, morbid obesity, HTN, SLE with recurrent symptomatic cholelithiasis. Details of HPI in clinical chart. She had pre-operative imaging including Abd US, CTAP and MCRP - large gallstone in body, no signs of acute cholecystitis or choledocholithiasis or ductal dilatation. However, I do see her gallbladder is very large with fundus extending well beyond liver margin in anteromedial position and she does have elevated Tbili and transaminitis. She is tender on exam. Taken to the operating room for cholecystectomy. Patient understands the risks and benefits of the procedure as documented in the clinic chart but specifically risk of cystic duct leak and common bile duct injury and has consented to the procedure. Operative Findings: Significantly large gallbladder in length, mildly inflamed, and large oval-shaped gallstone. Patient did have abarrent vascular anatomy to her gallbladder with what's most likely to be 2 cystic arteries. 1 cystic artery measuring approximately 3 mm in diameter was seen to be inserting directly into the infundibulum posterior to her cystic duct. The other larger artery was more medial measuring approximately 8mm seen inserting into the body of the gallbladder and tracking all the way along the body to the fundus on the medial aspect. All clips to arteries and cystic duct were in place at end of case and no bleeding or bile leak noted. Procedure/Operation Description: Procedure Performed: Laparoscopic, Robotic Assisted Cholecystectomy with Intraoperative Indigocyanine florescence. Details of Operation: The patient was given a preoperative dose of Zosyn before the incision. SCD boots were placed for DVT prophylaxis. The patient voided in pre-op immediately prior to surgery and no ames was placed. An orogastric tube placed in order to empty the stomach after the induction of general anesthesia. Upper body warmer placed. The abdomen was prepped and draped in sterile fashion and in the Supra-umbilical midline, a circumlinear incision was made and the umbilical raphe was identified and the fascia was divided between clamps at its base entering the abdomen in an open fashion. A 11 -mm trocar was inserted in the abdomen and the abdomen was insufflated to 15 mmHg pressure with CO2. An 8mm robotic 30-degree viewing scope was then inserted and the abdomen was generally inspected and there was not found to be any additional signs of pathology. An 8mm port was introduced through the 11mm laparoscopic port. In the right mid abdomen, two 8-mm robotic ports were placed after injection of local anesthetic under direct vision and another 8m robotic port in the left mid-upper abdomen was placed in the similar fashion. THe patient was placed in slight reverse trendelberg and right side up. A face protecting foam was placed over the patient's face and the robot was docked to the patient. Robotic instruments were then inserted under direct visualization. A prograsp retractor in the right lateral port, fenestrated bipolar in right medial port, and monopolar cautery in the left abdominal port. . The fundus of the gallbladder was identified beneath the liver edge and retracted to the right upper quadrant with the prograsp grasper and locked in place. The neck of the gallbladder was visualized. There were minimal omental adhesions to the gallbladder that were taken down with a cominbation of blunt dissection and monopolar hook cautery. The peritoneal attachments from the lateral portion of the gallbladder/cystic duct junction were gently dissected and divided to open up the [place]. The [place] was then dissected up onto the liver bed posterior to the gallbladder in order to ensure that this was the cystic duct and not tenting of the common bile duct. There was clear visualization of a large cystic artery insrting into the distal body of the gallbladder. During further posterior dissection of the cystic duct, a small cystic artery was noted lying posterior to cystic artery but covered in same peritoneal lining. The peritoneal attachments on the medial portion of the gallbladder going up to the side of the liver were taken. At this point there appeared to be 3 distinct structures entering directly into the gallbladder. I used the "firefly" fluoursence function of the robot several times during the above dissection and it was clear that the most anterior structure was the cystic duct; The other two structures appeared to be vessels and a pulse in each could be observed. At this point, I asked my senior colleague to come into the room to take a look at the findings above. She too agreed that there were 3 structures, 1 cystic duct and 2 vessels, likely to be 2 cystic arteries in aberrant anatomic configuration. To be sure, the larger vessels was dissected along its course from body to fundus, and it was clear it was limited only to the gallbladder. A laparoscopic image was taken and a copy placed i the patient chart for photodocumentation. Dr. Funk and I agreed if would be appropriate to proceed and clip both vascular structures. The duct was then doubly clipped and ligated and the clips were inspected. The two cystic arteries were also doublly clipped and divided. The gallbladder was dissected free from the liver bed using electrocautery and placed this in an endo catch bag. Once this was done, the abdomen was reinspected. The clips were in good position on the cystic artery and duct stumps. Robotic instruments were withdrawn under direct vision and the robot was then undocked from the patient. I re-scrubbbed and joined the team at bedside. A 5mm 30 degree laparoscope was resinserted throuhg the left abdominal port and gallbladder specimen was withdrawn through the umbilical port. Once this was done, the ports were removed from the abdomen and the abdomen was desufflated with air. The umbilical port was closed with 3x [id number] Vicryl suture and the skin incisions were closed with 4-0 Vicryl suturesand finally dermabond. The patient tolerated the procedure well and was extubated in the operating room and brought to recovery in stable condition. I was present for the entirety of the operation. All sponge, needle and instrument counts were correct. Estimated Blood Loss: 5 Complications: none Specimen: Gallbladder Discharge & Condition: Pacu, stable.
== END 2018-02-05 16:17 | disposition home or self-care (01) | DRG 493 ==
LOC: C.ER 06:29 → C.9E 12:38 → INTOOBSV 12:38 → C.5S 14:40 → C.9E 14:49 → C.3T 15:23 → OBSVTOIN 02-04 13:28
PROVIDERS: ADMIT Hospitalist; ATTEND Hospitalist
PROC: 8E0W4CZ Robotic Assisted Procedure of Trunk Region, Percutaneous Endoscopic Approach (ICD-10-PCS; 2018-02-04)
PROC: 0FT44ZZ Resection of Gallbladder, Percutaneous Endoscopic Approach (ICD-10-PCS; principal; 2018-02-04 09:00)
DX: K80.10 Calculus of gallbladder with chronic cholecystitis without obstruction (principal); J98.11 Atelectasis; M32.9 Systemic lupus erythematosus, unspecified; I10 Essential (primary) hypertension; E66.01 Morbid (severe) obesity due to excess calories; Z68.35 Body mass index [BMI] 35.0-35.9, adult